=== PATIENT | male | born 1940 | race Caucasian/White ===

== ENCOUNTER 2017-10-07 07:57 | Day surgery (SDC) | payer MEDICARE ==
[2017-10-06 09:46] VITALS: BMI 25.8
--- NOTE | 2017-10-07 11:23 | OP ---
DATE OF PROCEDURE: 10/07/2017 SURGEON: Danyel Xiong M.D. PROCEDURE: EGD with ablation of AVM with argon plasma coagulation and colonoscopy with ablation of A VM with argon plasma coagulation and polypectomy with hot snare polypectomy. PREPROCEDURE DIAGNOSES: 1. Recent drop in hemoglobin from baseline around 14 down to 11 [address] negative [address] ools. 2. The patient recently has been started on Xarelto and then was changed to Eliquis. This was for a trial fibrillation. POST-PROCEDURE DIAGNOSES: 1. No active bleeding sites seen. 2. The esophagus showed scarring from previous reflux, change. The patient has had no dysphagia, so no intervention was performed. There was no evidence of Morel's and the Z-line was normal. The E GD scope passed through this area fine, but when we attempted to do enteroscopy with a colonoscope to look for the small bowel the therapeutic colonoscope would not pass through the esophagus secondary to the stricturing. 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 3. Stomach was normal. 4. Duodenum was notable for small AVMs 2 were arborizing around the area of periampullary diverticul a. These were cauterized with argon plasma coagulation. They were not actively bleeding at time of endoscopy. 5. Colonoscopy notable for jordan diverticulosis. 6. 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 7. 5 mm polyp in the descending colon removed by snare polypectomy, hot. ANESTHESIA: TIVA. RECOMMENDATIONS: 1. He can start back on his anticoagulation in 3 days. 2. He should take iron daily. 3. If patient has further drop in hemoglobin, does not have improvement with iron supplementation I can see him back in the office and we can consider capsule endoscopy of the small bowel. However, at that point I think that something else should to be done with his anticoagulation as he has diffuse AVM disease. It is just going to recur even if it is treated in the small bowel. PROCEDURE IN DETAIL: After the patient was informed of the risks, benefits, possible complications o f endoscopy including perforation, bleeding, reactions to medication and aspiration, informed consent was obtained. The patient was brought to the endoscopy suite where he was sedated in gradual fashio n. Once he was comfortable, a bite block was placed by incisural orifice. The endoscope was advance d to the esophagus, stomach and second and third portion of duodenum and slowly removed. The esophag us was notable for scarring consistent with previous stricture disease. The patient had no dysphagia . This was not dilated. The Z-line appeared normal. The stomach was entered and found to be normal except for a small hiatal hernia. Retroflexed views were normal as well. There were no AVMs or ble eding sites in the stomach or erosions. The duodenal bulb was normal in the second part of the duode num. There was a periampullary diverticula and a few small AVMs, 2 were arborizing type. They were not bleeding. These were cauterized with argon plasma coagulation. There were a few small red spots . These were not treated. The AVMs were cauterized with argon plasma coagulation on stomach setting s. There was no bleeding or complications. The scope was removed. Attempt was made to pass the colonoscope down into the duodenum to the second and third portion to lo ok further in the duodenum for possible further AVMs; however, due to scarring in the esophagus the t herapeutic colonoscope would not pass. The patient was turned in the room and rectal exam performed which was normal. The endoscope was adv anced through the colon to cecum which was seen and well visualized and photo documented. There was diverticulosis throughout the colon. There was 1 AVM in the ascending colon which was nonbleeding an d cauterized with argon plasma coagulation in light of the patient's anemia. The scope was retroflex ed in the rectum and removed.
[2017-10-07] MEDS ORDERED: Lidocaine 1% PF 5 ML VIAL ONE (11:54)
[2017-10-07] MEDS ORDERED: PROPOFOL 200 MG/20 ML VIAL ONE (11:54)
== END 2017-10-07 11:50 | disposition home or self-care (01) ==
LOC: SDC 07:57
PROVIDERS: ATTEND Internal Medicine Gastroenterology
PROC: 0D5K8ZZ Destruction of Ascending Colon, Via Natural or Artificial Opening Endoscopic (ICD-10-PCS; principal; 2017-10-07)
PROC: 0D598ZZ Destruction of Duodenum, Via Natural or Artificial Opening Endoscopic (ICD-10-PCS; 2017-10-07)
DX: K63.5 Polyp of colon (principal); K57.30 Diverticulosis of large intestine without perforation or abscess without bleeding; D64.9 Anemia, unspecified; I48.91 Unspecified atrial fibrillation; K44.9 Diaphragmatic hernia without obstruction or gangrene; Z79.01 Long term (current) use of anticoagulants; Z87.891 Personal history of nicotine dependence; Z79.899 Other long term (current) drug therapy
CPT/HCPCS: 88305

== ENCOUNTER 2017-10-13 08:32 | Inpatient (IN) | payer MEDICARE ==
[2017-10-13 09:21] LABS: #Eosinphils 0.1 thou/uL (0.0-0.7); #Monocytes 0.7 thou/uL (0.11-0.59); #Neutrophils 8.4 thou/uL (1.40-6.50); %Basophils 0.1 % (0.0-1.0); %Eosinophils 1.4 % (0.0-10.0); %Lymphocytes 10.1 % (21.0-51.0); %Monocytes 6.5 % (0.0-10.0); Hemoglobin 11.3 g/dL (14.0-18.0); Mean Corpuscular HGB CONC 33.1 g/dL (32.0-36.0); Mean Corpuscular Volume 93.7 fl (80.0-94.0); Mean Platelet Volume 6.4 fL (7.4-10.4); Platelet Count 253 thou/uL (130-400); RBC Distribution Width 12.1 % (11.5-14.5); Red Blood Cell (RBC) Count 3.64 mill/uL (4.70-6.10); White Blood Cell (WBC) Count 10.2 thou/uL (4.8-10.8)
[2017-10-13 09:33] LABS: INR-International Normal Ratio 1.2; Prothrombin Time 15.1 SEC (12.0-14.7)
[2017-10-13 09:34] LABS: PTT 31.6 SEC (22.9-36.1)
[2017-10-13 09:46] LABS: ALT (SGPT) 10 U/L (8-55); AST (SGOT) 13 U/L (5-34); Albumin 3.4 g/dL (3.4-4.8); Alkaline Phosphatase 85 U/L (40-150); Anion Gap 10 mmol/L (10-20); BUN (Urea Nitrogen) 14 mg/dL (8.4-25.7); Bilirubin, Total 0.6 mg/dL (0.2-1.2); Calc. Creatinine Clearance 0 mL/min (70-130); Calcium 8.7 mg/dL (7.8-10.44); Carbon Dioxide 25 mmol/L (23-31); Chloride 106 mmol/L (98-107); Estimated GFR-MDRD Greater than 90; Globulin 2.6 g/dL (2.4-3.5); Glucose 154 mg/dL (83-110); Potassium 4.1 mmol/L (3.5-5.1); Sodium 137 mmol/L (136-145)
[2017-10-13] MEDS ORDERED: Zolpidem Tartrate 5 MG TAB PO PRN (12:00)
[2017-10-13] MEDS ORDERED: Ondansetron HCl/PF 4 MG/2 ML Vial IVP PRN (12:00)
[2017-10-13] MEDS ORDERED: Dextrose 50% Abboject 50 ML SYRINGE SLOW IVP PRN (12:14)
[2017-10-13] MEDS ORDERED: Dextrose 5% in Water 1,000 ML IV PRN (12:14)
[2017-10-13] MEDS ORDERED: HumaLOG 300 UNITS/3 ML VIAL SC PRN (12:14)
--- NOTE | 2017-10-13 12:42 | HP ---
CHIEF COMPLAINT: GI bleed. HISTORY OF PRESENT ILLNESS: This is a 77-year-old male, who is being admitted to the hospital after presenting to the ER with bright red blood per rectum. The patient takes Eliquis for history of atri al fibrillation, had a nuclear stress test done 2 weeks ago, which was clear. He had a colonoscopy d one last Thursday by his GI doctor. Polyps were removed at that point in time; however, the patient states that for 5 days postoperatively and colonoscopy polypectomy, the patient did not have any ble eding; however, this morning when he had a bowel movement, he had fresh bright red blood in the toile t bowl. The patient states that he did not have any signs or symptoms of weakness, fatigue, states t hat this is the first time that this has happened to him. Of note, his hemoglobin is 11.3 in the ER. No prior records available. The patient currently is asymptomatic, has not had any bowel movements in the hospital. No other associated symptoms. No alleviating or aggravating factors noted. No fa katharina at bedside. ALLERGIES: No known drug allergies. PAST MEDICAL HISTORY: Positive for atrial fibrillation, polyps removal, hyperlipidemia, hypothyroidi sm, diabetes mellitus type 2, and BPH, and hypertension. SOCIAL HISTORY: Denies smoking, does partake alcohol socially. REVIEW OF SYSTEMS: All systems reviewed. Pertinent positives in the HPI, otherwise negative. PHYSICAL EXAMINATION: VITAL SIGNS: Blood pressure is 138/88, irregularly irregular rhythm, temperature 98, and respiratory rate of 16. GENERAL: The patient is lying in bed in no acute distress. HEENT: Pupils equal, round, reactive to light and accommodation. Oral cavity moist and pink. Denta l caries noted. No lymphadenopathy noted. NECK: Supple, mobile, nontender thyroid. LUNGS: Clear to auscultation bilaterally, aerating well. No respiratory distress noted. CARDIOVASCULAR: Irregularly irregular rhythm. No murmurs, rubs, or gallops noted. ABDOMEN: Positive bowel sounds, soft, nontender. No rebound or guarding noted. EXTREMITIES: 2+ peripheral pulses. No edema noted. NEUROLOGIC: Cranial nerves II-XII intact. Alert and oriented x3, moving all extremities. LABORATORY DATA: CBC as mentioned earlier, hemoglobin 11.3, otherwise normal. Coagulation panel, PT , INR, PTT normal. Basic metabolic panel normal. ASSESSMENT: 1. Bright red blood per rectum/GI bleed. 2. Atrial fibrillation on Eliquis. 3. Hyperlipidemia. 4. Diabetes mellitus type 2. 5. Hypertension. PLAN: At this point in time, we will admit the patient to Internal Medicine team on the telemetry fl oor inpatient status. ER has already discussed the case with GI. We will place the patient n.p.o. Consult the patient's outpatient GI doctor. Recent colonoscopy done. We will defer decision on repe at colonoscopy or not to GI once have had a chance to review the current data. Given history of atri al fibrillation, diabetes mellitus and high risk for stroke and normal hemoglobin, we will continue t he apixaban for now. If the patient bleeds, we can always provide more blood, otherwise, risk of str shruthi is high. Blood pressure target systolic 120-140, insulin sliding scale and basal insulin for rajani betes, famotidine for gastrointestinal prophylaxis. The patient already is on apixaban; therefore, D VT prophylaxis will not be needed. CODE STATUS: Discussed with the patient. He wishes to remain a FULL CODE.
--- NOTE | 2017-10-13 13:26 | CON ---
DATE OF CONSULTATION: 10/13/2017 CHIEF COMPLAINT: Blood in the stool. HISTORY OF PRESENT ILLNESS: Mr. Lam is a 77-year-old man, who underwent EGD and colonoscopy on by Dr. Xiong for evaluation of anemia after starting anticoagulation. Two vascular ectasias were cauterized in the duodenum. The colonoscopy revealed a vascular ectasia cauterized in the righ t colon and also 5 mm hyperplastic polyp was removed from the descending colon. The patient was note d to have diverticulosis. Also, he had a stricture in the esophagus and allowed passage of the diagn ostic endoscope, but not the colonoscope. This was a stricture related to prior radiation treatment. Last night, the patient had 2 episodes of diarrhea in the middle of the night that he did not view. Then, this morning about 7:00 a.m., he had a liquidy bright red bloody bowel movement and he came to the emergency room then for further care. Here in the emergency room, he has been hemodynamically st able. His hemoglobin is found to be stable at 11. He did pass a dark red bloody stool with some suellen t once in the emergency room around noon. He states that this was much darker than the prior bleedin g episode. He has had no lightheadedness or dizziness. No nausea, vomiting, abdominal pain, prior d iarrhea, constipation, or prior visible blood in the stool. He has had lost 20 pounds gradually over the last 3 years with diet changes and exercise. PAST MEDICAL HISTORY: Lung cancer treated with radiation, diabetes mellitus, thyroid disease, hypert ension, hyperlipidemia, coronary artery disease treated with angioplasty over 20 years ago. He has n ot had a stent or bypass surgery. He has had hyperlipidemia. PAST SURGICAL HISTORY: Foot surgery, pacemaker placement, angioplasty, EGD and colonoscopy with caut michelle of arteriovenous malformations and polypectomy. FAMILY HISTORY: Negative for GI malignancy. SOCIAL HISTORY: Drinks 2 or 3 glasses of wine per week. No drugs or alcohol. ALLERGIES: No known drug allergies. MEDICATIONS: Atorvastatin, levothyroxine, metformin, vitamin D, tamsulosin, Metamucil 2 teaspoons da lesli, Eliquis 5 mg twice daily. His last dose was last night around 6:30 p.m., valsartan, melatonin, vitamin B12. REVIEW OF SYSTEMS: Negative x10 systems reviewed except as stated in history of present illness. PHYSICAL EXAMINATION: VITAL SIGNS: Blood pressure 119/38, pulse 85, temperature 97.8. GENERAL: He is in no acute distress, alert and oriented x3. HEENT: Eyes have no scleral icterus. Oropharynx is clear, without lesions. NECK: No cervical or supraclavicular lymphadenopathy. LUNGS: Clear to auscultation bilaterally. HEART: Regular rate and rhythm without murmur. ABDOMEN: Soft, nontender, nondistended. Bowel sounds are present. EXTREMITIES: No lower extremity edema. LABORATORY AND X-RAY FINDINGS: White blood cell count 10.2, hemoglobin 11.3, platelets 253. INR 1.2 , creatinine 0.77, bilirubin 0.6, AST 13, ALT 10, alkaline phosphatase 85, albumin 3.4. IMPRESSION: 1. Gastrointestinal bleed. Unclear if this is an upper GI bleed secondary to the cautery sites from the duodenal arteriovenous malformations versus lower GI bleed from the right-sided colonic arteriov enous malformation or the polypectomy site. I would favor this being a colonic bleed given the brigh t red bloody stool this morning. The blood has become much darker with a second stool today, which i ndicates a bleeding is likely slowing down. I would suspect that the bleeding is from the right-side d arteriovenous malformation. The patient's last dose of Eliquis was last night at 6:30 p.m. It santiago ears that the bleeding slowing down and his hemoglobin was stable. He really does not want to take a bowel prep currently. I think it would be reasonable to see the progress of the bleeding status ove r the next several hours as his Eliquis wear off. If the bleeding stops off Eliquis, then repeat end oscopy might not be necessary. He likely just stay off the Eliquis for an extra week and then restar mariaa after that. 2. Atrial fibrillation, paroxysmal, on chronic anticoagulation. 3. History of chronic obstructive pulmonary disease and diabetes mellitus. RECOMMENDATIONS: 1. IV fluids and monitor the hemoglobin. 2. If he has further significant overt bleeding, then we will prep for EGD and colonoscopy. 3. Anticoagulation is held for now.
[2017-10-13] MEDS: Sodium Chloride 0.9% 1,000 ML IV SCH ×2 (13:32→22:10)
[2017-10-13 16:13] LABS: Hemoglobin 9.9 g/dL (14.0-18.0)
[2017-10-13 17:42] VITALS: BMI 25.7
[2017-10-13] MEDS ORDERED: Non-Formulary Item 1 EACH (Omeprazole [Omeprazole] 40 MG) PO SCH (21:00)
[2017-10-13] MEDS ORDERED: Apixaban 5 MG TAB PO SCH (21:00)
[2017-10-13] MEDS: Valsartan 80 MG TAB PO SCH (21:40)
[2017-10-13] MEDS: Atorvastatin Calcium 40 MG TAB PO SCH (21:42)
[2017-10-13] MEDS: Insulin Glargine 5 UNITS in Pre-Filled Syringe SC SCH (21:42)
[2017-10-13] MEDS: Famotidine 20 MG TAB PO SCH (21:42)
[2017-10-13] MEDS: Tamsulosin HCl 0.4 MG CAP PO SCH (21:43)
[2017-10-14 05:39] LABS: #Eosinphils 0.2 thou/uL (0.0-0.7); #Lymphocytes 1.1 thou/uL (1.20-3.40); #Monocytes 0.7 thou/uL (0.11-0.59); #Neutrophils 6.6 thou/uL (1.40-6.50); %Basophils 0.3 % (0.0-1.0); %Lymphocytes 12.8 % (21.0-51.0); %Monocytes 7.6 % (0.0-10.0); %Neutrophils 77.4 % (42.0-75.0); Hemoglobin 9.3 g/dL (14.0-18.0); Mean Corpuscular HGB CONC 32.6 g/dL (32.0-36.0); Mean Corpuscular Volume 95.3 fl (80.0-94.0); Mean Platelet Volume 6.7 fL (7.4-10.4); Platelet Count 234 thou/uL (130-400); RBC Distribution Width 12.1 % (11.5-14.5); Red Blood Cell (RBC) Count 2.99 mill/uL (4.70-6.10); White Blood Cell (WBC) Count 8.6 thou/uL (4.8-10.8)
[2017-10-14 05:49] LABS: Anion Gap 8 mmol/L (10-20); Calc. Creatinine Clearance 86 mL/min (70-130); Calcium 8.3 mg/dL (7.8-10.44); Carbon Dioxide 25 mmol/L (23-31); Chloride 109 mmol/L (98-107); Estimated GFR-MDRD Greater than 90; Glucose 110 mg/dL (83-110); Potassium 4.1 mmol/L (3.5-5.1); Sodium 138 mmol/L (136-145)
[2017-10-14 06:46] LABS: BUN (Urea Nitrogen) 13 mg/dL (8.4-25.7)
[2017-10-14] MEDS: Valsartan 80 MG TAB PO SCH ×2 (07:51→21:15)
[2017-10-14] MEDS: Levothyroxine Sodium 100 MCG TAB PO SCH (07:51)
[2017-10-14] MEDS: Famotidine 20 MG TAB PO SCH ×2 (07:52→20:14)
--- NOTE | 2017-10-14 10:00 | CON ---
DATE OF CONSULTATION: 10/14/2017 CONSULTING PHYSICIAN: Angie abdalla. REASON FOR CONSULTATION: Evaluation of COPD. HISTORY OF PRESENT ILLNESS: This patient is a 77-year-old male who I have seen in the office on several occasions in the past, but not since 2012. He was actually scheduled to see me yesterday in the office, but missed the appointment because he had to be admitted into the hospital. He had some gastrointestinal bleeding last week which required upper and lower endoscopy. He was hospitalized with recurrent bleeding yesterday. I think that has stabilized, but he is currently under GI evaluation for that. PAST MEDICAL HISTORY: 1. Chronic obstructive pulmonary disease - he has had PFTs performed in the past which showed an FEV1, 2.07 liters which is 73% predicted and FVC of 3.2 liters which is 88% predicted. 2. Cardiac arrhythmias. 3. Probable congestive heart failure. 4. Cancer of the head and neck. 5. Lung cancer. PAST SURGICAL HISTORY: Pacemaker placement. SOCIAL HISTORY: The patient quit smoking about 25 years ago. MEDICATIONS: Reviewed, see chart. REVIEW OF SYSTEMS: He has dyspnea with exertion, occasionally wheezes. PHYSICAL EXAMINATION: VITAL SIGNS: Heart rate 60, O2 sat 97% on room air, blood pressure 120/80. HEENT: Unremarkable. NECK: Without adenopathy or JVD. LUNGS: Clear without wheezing or rhonchi. No dullness to percussion. CARDIAC: S1, S2 regular. ABDOMEN: Soft, nontender. EXTREMITIES: No clubbing, cyanosis, or edema. LABORATORY DATA: Reviewed, see chart. ASSESSMENT: 1. Chronic obstructive pulmonary disease. 2. Gastrointestinal bleeding. 3. Atrial fibrillation. PLAN: I will go ahead and start him on Anora Ellipta 1 puff daily. This can be done as an outpatient. I have asked him to see me back in followup in 2-3 weeks. 70 minutes time was spent performing this consultation. Of that time, >50% was spent with the patient and/or on the patient's hospital unit [facility]
--- NOTE | 2017-10-14 11:21 | PDOC.PN ---
- Subjective Encounter Start Date: 10/14/17 Encounter Start Time: 10:15 PAtient is seen today, alert and oriented. he said he had black stool today along with bright red bloood, he is on clear liquids, no abdominal pain, no Sob. - Objective MAR Reviewed: Yes Vital Signs & Weight: Vital Signs (12 hours) Temp Pulse Resp BP Pulse Ox 10/14/17 07:20 97.9 F 81 16 193/82 H 96 10/14/17 04:00 97.6 F 72 18 179/72 H 93 L 10/14/17 00:00 98.4 F 74 18 145/63 H 95 Result Diagrams: 10/14/17 05:17 10/14/17 05:17 Radiology Reviewed by me: Yes Phys Exam - Physical Examination HEENT: PERRLA, moist MMs Neck: no nodes, no JVD Respiratory: no wheezing, no rales Cardiovascular: RRR, no significant murmur Gastrointestinal: soft, non-tender Musculoskeletal: no edema, pulses present Neurological: non-focal, normal sensation Psychiatric: normal affect, A&O x 3 Dx/Plan (1) Anemia associated with acute blood loss Code(s): D62 - ACUTE POSTHEMORRHAGIC ANEMIA Status: Acute Comment: Will luis harden, Will reepat Hb today afternoon at 1500,. oif persistantly dropping with black stool and stool per rectum, will discus with Gi to keep pt NPO to avoid GI irritation. Will continue pt on PPI. (2) Anticoagulation management encounter Code(s): Z51.81 - ENCOUNTER FOR THERAPEUTIC DRUG LEVEL MONITORING; Z79.01 - WRAPPER CASER (CURRENT) USE OF ANTICOAGULANTS Status: Acute Comment: held Eleiquis. (3) Atrial fibrillation Code(s): I48.91 - UNSPECIFIED ATRIAL FIBRILLATION Status: Acute Comment: rate controlled, no anticoagulation, high risk for Stroke, pt aware of it. (4) Melena Code(s): K92.1 - MELENA Status: Acute Comment: will change to protonix PPI IV BID. Will do PRBC if Hbdrops <8 (5) COPD (chronic obstructive pulmonary disease) Status: Acute Comment: no exacerbation (6) HTN (hypertension) Code(s): I10 - ESSENTIAL (PRIMARY) HYPERTENSION Status: Acute (7) DM type 2 (diabetes mellitus, type 2) Status: Acute Comment: Stbale, continue with SSI. - Plan cont current plan of care, plan discussed w/ family, PT/OT, social services aide, DVT proph w/SCDs PLAN TO CLOSLEY MONITOR the Bleeding. Will keep pt in hospital today. Plan on discussing with Cardiology regarding holding off of Elliqis due to GI bleeding. Review of Systems - Review of Systems Eyes: negative: Pain, Vision Change, Conjunctivae Inflammation, Eyelid Inflammation, Redness, Other ENT: negative: Ear Pain, Ear Discharge, Nose Pain, Nose Discharge, Nose Congestion, Mouth Pain, Mouth Swelling, Throat Pain, Throat Swelling, Other Respiratory: negative: Cough, Dry, Shortness of Breath, Hemoptysis, SOB with Excertion, Pleuritic Pain, Sputum, Wheezing Cardiovascular: negative: chest pain, palpitations, orthopnea, paroxysmal nocturnal dyspnea, edema, light headedness, other Gastrointestinal: negative: Nausea, Vomiting, Abdominal Pain, Diarrhea, Constipation, Melena, Hematochezia, Other Musculoskeletal: negative: Neck Pain, Shoulder Pain, Arm Pain, Back Pain, Hand Pain, Leg Pain, Foot Pain, Other Skin: negative: Rash, Lesions, Jonah, Bruising, Other - Medications/Allergies Allergies/Adverse Reactions: Allergies Allergy/AdvReac Type Severity Reaction Status Date / Time No Known Allergies Allergy Verified 10/13/17 15:19 Medications: Current Medications Albuterol/Ipratropium (Duoneb) 3 ml NEB [id number] PRN PRN Reason: Dyspnea/Wheezing/SOB Atorvastatin Calcium (Lipitor) 40 mg PO QPM [facility] Last Admin: 10/13/17 21:42 Dose: Not Given Dextrose/Water (Dextrose 50%) 25 gm SLOW IVP PRN PRN PRN Reason: Hypoglycemia Famotidine (Pepcid) 20 mg PO BID [facility] Last Admin: 10/14/17 07:52 Dose: 20 mg Glucagon (Glucagon) 1 mg IM PRN PRN PRN Reason: Hypoglycemia Sodium Chloride (Normal Saline 0.9%) 1,000 mls @ 70 mls/hr IV .[id number] [facility] Last Admin: 10/13/17 22:10 Dose: 1,000 mls Dextrose/Water (D5w) 1,000 mls @ 0 mls/hr IV .Q0M PRN; As Directed PRN Reason: Hypoglycemia Insulin Glargine 5 units/ (Miscellaneous Medication) 0.05 mls @ 0 mls/hr SC HS [facility] Last Admin: 10/13/17 21:42 Dose: Not Given Insulin Human Lispro (Humalog) 0 units SC .MILD SLIDING SCALE PRN PRN Reason: Mild Correctional Scale Lactulose (Lactulose) 20 gm PO DAILYPRN PRN PRN Reason: Constipation Levothyroxine Sodium (Synthroid) 100 mcg PO QAM [facility] Last Admin: 10/14/17 07:51 Dose: 100 mcg Ondansetron HCl (Zofran) 4 mg IVP Q6H PRN PRN Reason: Nausea/Vomiting Pantoprazole Sodium (Protonix) 40 mg PO QPM [facility] Last Admin: 10/13/17 21:43 Dose: Not Given Sodium Chloride (Flush - Normal Saline) 10 ml IVF Q12HR [facility] Last Admin: 10/14/17 07:52 Dose: Not Given Sodium Chloride (Flush - Normal Saline) 10 ml IVF PRN PRN PRN Reason: Saline Flush Tamsulosin HCl (Flomax) 0.4 mg PO QPM [facility] Last Admin: 10/13/17 21:43 Dose: Not Given Valsartan (Diovan) 40 mg PO BID [facility] Last Admin: 10/14/17 07:51 Dose: 40 mg Zolpidem Tartrate (Ambien) 5 mg PO HSPRN PRN PRN Reason: Insomnia
[2017-10-14] MEDS: Sodium Chloride 0.9% 1,000 ML IV SCH (12:47)
[2017-10-14 12:52] LABS: Hemoglobin 9.6 g/dL (14.0-18.0)
[2017-10-14] MEDS: hydrALAZINE 20 MG/ML VIAL SLOW IVP PRN (14:20)
[2017-10-14 15:16] LABS: #Basophils 0.1 thou/uL (0.0-0.2); #Eosinphils 0.1 thou/uL (0.0-0.7); #Lymphocytes 1.5 thou/uL (1.20-3.40); #Monocytes 0.6 thou/uL (0.11-0.59); #Neutrophils 6.5 thou/uL (1.40-6.50); %Basophils 0.6 % (0.0-1.0); %Eosinophils 1.5 % (0.0-10.0); %Lymphocytes 17.1 % (21.0-51.0); %Monocytes 6.6 % (0.0-10.0); %Neutrophils 74.2 % (42.0-75.0); Hemoglobin 10.1 g/dL (14.0-18.0); Mean Corpuscular HGB CONC 33.3 g/dL (32.0-36.0); Mean Corpuscular Hemoglobin 31.2 pg (27.0-31.0); Mean Corpuscular Volume 93.8 fl (80.0-94.0); Mean Platelet Volume 6.3 fL (7.4-10.4); Platelet Count 234 thou/uL (130-400); RBC Distribution Width 12.2 % (11.5-14.5); Red Blood Cell (RBC) Count 3.25 mill/uL (4.70-6.10); White Blood Cell (WBC) Count 8.8 thou/uL (4.8-10.8)
--- NOTE | 2017-10-14 17:20 | PRG ---
DATE OF SERVICE: 10/14/2017 GI FOLLOWUP SUBJECTIVE: Mr. Lam had one bowel movement this morning at 8:00 that had old blood and then he jus t had a second bowel movement here at 2:00 that was about 5 mL of old blood. He has been tolerating liquid diet. His blood pressure has been running high. Today, he has been given some extra blood pr essure medicines and his IV fluids have been held. He is without chest pain, shortness of breath or abdominal pain. He has no appetite. OBJECTIVE: VITAL SIGNS: Pulse 75, respirations 18, and blood pressure 181/74. LUNGS: Clear. ABDOMEN: Soft, nontender. Bowel sounds scant. LABORATORY DATA: Hemoglobin 9.6 at 12:41 today. ASSESSMENT: Lower gastrointestinal bleeding after colonoscopy and ablation of AVM, polypectomy. He was on Eliquis that has been on hold now, his last dose was the last night, the night before. PLAN: Advance diet to soft diet, Hep-Lock IV, blood pressure control per primary care. If the patie nt drops hemoglobin with subsequent recurrent large amounts of bleeding, we will proceed with endosco py. This seems to be stopping on its own. If it does, hopefully can go home tomorrow or the next da y and stay off his Eliquis for about 5 days.
[2017-10-14] MEDS: Atorvastatin Calcium 40 MG TAB PO SCH (20:14)
[2017-10-14] MEDS: Tamsulosin HCl 0.4 MG CAP PO SCH (20:14)
[2017-10-14] MEDS: Insulin Glargine 5 UNITS in Pre-Filled Syringe SC SCH (20:15)
[2017-10-14] MEDS: Pantoprazole 40 MG VIAL IVP SCH (20:15)
[2017-10-15 05:21] LABS: #Eosinphils 0.2 thou/uL (0.0-0.7); #Lymphocytes 1.1 thou/uL (1.20-3.40); #Monocytes 0.7 thou/uL (0.11-0.59); #Neutrophils 6.2 thou/uL (1.40-6.50); %Basophils 0.5 % (0.0-1.0); %Eosinophils 2.4 % (0.0-10.0); %Lymphocytes 13.6 % (21.0-51.0); %Monocytes 8.2 % (0.0-10.0); %Neutrophils 75.3 % (42.0-75.0); Hemoglobin 9.2 g/dL (14.0-18.0); Mean Corpuscular HGB CONC 33.1 g/dL (32.0-36.0); Mean Corpuscular Hemoglobin 31.1 pg (27.0-31.0); Mean Corpuscular Volume 93.9 fl (80.0-94.0); Mean Platelet Volume 6.8 fL (7.4-10.4); Platelet Count 231 thou/uL (130-400); RBC Distribution Width 12.2 % (11.5-14.5); Red Blood Cell (RBC) Count 2.95 mill/uL (4.70-6.10); White Blood Cell (WBC) Count 8.2 thou/uL (4.8-10.8)
[2017-10-15 05:33] LABS: Anion Gap 12 mmol/L (10-20); BUN (Urea Nitrogen) 13 mg/dL (8.4-25.7); Calc. Creatinine Clearance 89 mL/min (70-130); Calcium 8.5 mg/dL (7.8-10.44); Carbon Dioxide 23 mmol/L (23-31); Chloride 108 mmol/L (98-107); Estimated GFR-MDRD Greater than 90; Glucose 107 mg/dL (83-110); Potassium 4.2 mmol/L (3.5-5.1); Sodium 139 mmol/L (136-145)
[2017-10-15] MEDS: Pantoprazole 40 MG VIAL IVP SCH ×3 (08:36→23:42)
[2017-10-15] MEDS: Levothyroxine Sodium 100 MCG TAB PO SCH (08:36)
--- NOTE | 2017-10-15 09:25 | PRG ---
DATE OF SERVICE: 10/15/2017 SUBJECTIVE: Patient is doing reasonably well, but is still having some melena. PHYSICAL EXAMINATION: VITAL SIGNS: On exam, temperature is 97.7, pulse 85, respirations 20, O2 sat 97%, pulse 129/56. HEENT: Unremarkable. NECK: No JVD. CHEST: Clear. CARDIAC: S1 and S2 regular. ABDOMEN: Soft. EXTREMITIES: No edema. LABORATORY DATA: Sodium 139, potassium 4.2, chloride 108, CO2 of 22, BUN 13, creatinine 0.7, glucose 107. White cell count 8.2, hematocrit 27.7, platelet count 231. ASSESSMENT: 1. Intestinal bleeding. 2. Chronic obstructive pulmonary disease. PLAN: He has a prescription for Anoro Ellipta inhaler. 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 He is to see me in the office in 2 to 3 weeks. No further pulmonary re commendations at this time.
[2017-10-15] MEDS: Valsartan 80 MG TAB PO SCH ×2 (09:48→21:10)
[2017-10-15] MEDS: Famotidine 20 MG TAB PO SCH ×3 (09:48→23:41)
[2017-10-15] MEDS ORDERED: GoLYTELY 4,000 ml Bottle PO SCH (13:30)
[2017-10-15] MEDS ORDERED: Lidocaine 1% PF 5 ML VIAL ONE (14:34)
[2017-10-15] MEDS ORDERED: PROPOFOL 200 MG/20 ML VIAL ONE (14:34)
[2017-10-15 15:12] LABS: Hemoglobin 10.2 g/dL (14.0-18.0)
--- NOTE | 2017-10-15 17:15 | PRG ---
DATE OF SERVICE: 10/15/2017 SUBJECTIVE: Mr. Lam continues to have small melenic stool, but it is not really changing much. He had 2 yesterday and 2 today. OBJECTIVE: VITAL SIGNS: Temperature 97, pulse 85, blood pressure 129/59. ABDOMEN: Soft, nontender. Bowel sounds are positive. EXTREMITIES: No clubbing, cyanosis or edema. LABORATORY STUDIES: White count 8.3, hemoglobin 9.2, platelet count 231. 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 He is status post colonoscopy a nd polypectomy. On 10/07/2017, he has been off Eliquis now for over 72 hours and seems to have sligh t oozing. RECOMMENDATIONS: Repeat colonoscopy with hopefully cautery of bleeding site.
[2017-10-15] MEDS ORDERED: Ondansetron HCl/PF 4 MG/2 ML Vial IVP PRN (18:36)
[2017-10-15] MEDS: Atorvastatin Calcium 40 MG TAB PO SCH ×2 (21:08→23:42)
[2017-10-15] MEDS: Insulin Glargine 5 UNITS in Pre-Filled Syringe SC SCH (21:09)
[2017-10-15] MEDS: Tamsulosin HCl 0.4 MG CAP PO SCH (21:10)
[2017-10-16] MEDS: Valsartan 80 MG TAB PO SCH ×2 (00:01→09:55)
[2017-10-16] MEDS: hydrALAZINE 20 MG/ML VIAL SLOW IVP PRN (01:29)
--- NOTE | 2017-10-16 02:25 | OP ---
DATE OF PROCEDURE: 10/15/2017 INDICATION FOR PROCEDURE: Melena, hematochezia. PROCEDURES: Esophagogastroduodenoscopy (diagnostic), colonoscopy with control of hemorrhage. DESCRIPTION OF PROCEDURE: After the risks and benefits of the procedures were explained to the patie nt including risks of bleeding, infection, perforation, reaction to anesthesia and/or pain, informed consent was obtained. The patient was then taken to the endoscopy suite where deep sedation was admi nistered via propofol and anesthesia support. Once adequate anesthesia was achieved, a standard ji roscope was introduced into the mouth with intubation of the esophagus, stomach, and proximal small i ntestine with the findings listed below. Once completion of this portion of the examination, all equ ipment was removed with the bed then rotated approximately 180 degrees and initiation of the colonosc opy portion of the procedure. After a digital rectal examination, the standard colonoscope was then introduced into the rectum and advanced to the cecum with the findings listed below. The prep was fa ir to good with adequate views of the colonic mucosa seen. The patient tolerated the procedure well with no immediate perioperative complications. ESOPHAGOGASTRODUODENOSCOPY FINDINGS: Esophagus: Normal appearing mucosa was seen in the proximal, mid and distal esophagus. There was no evidence of erosions, ulcerations, mass, lesions, or active/recent bleeding. The diaphragmatic pinc h was well seen at approximately 44-cm past the incisors while the GE junction was seen at 42 cm, ind icating a 2-cm hiatal hernia. Stomach: Normal appearing mucosa was seen in the gastric cardia, fundus, body, antrum, and incisura. There was no evidence of erosions, ulcerations, mass, lesions, or active/recent bleeding. Duodenum: Normal appearing mucosa was seen in both the duodenal bulb and second portion of the duode num. There was no evidence of erosions, ulcerations, mass, lesions, or active/recent bleeding. Impr ession: 1. A 2-cm hiatal hernia. 2. Otherwise, normal upper endoscopy. COLONOSCOPY FINDINGS: Digital rectal examination, normal findings on external exam. COLON FINDINGS: A 3-4 mm ulceration was seen in the cecum with a red spot located along the inferior aspect of the ulceration. The ulceration was otherwise clean based with no evidence of active/recen t bleeding nearby given the red spot on the inferior aspect of the ulceration as higher risk stigmata of bleeding. This was intervened upon with bipolar cautery with good hemostasis achieved. Normal a ppearing mucosa was then seen at the ileocecal valve and appendiceal orifice. Normal appearing mucos a was also seen in the ascending and transverse colons. A 5-6 mm ulceration was seen in the descendi ng colon consistent with prior polypectomy site. There was a small red spot along the lateral aspect of the ulceration as well as a large clot nearby concerning for a possible site of recent GI bleedin g. This ulceration was then act intervened upon with bipolar cautery with good hemostasis achieved. Normal appearing mucosa was seen in the remainder of the descending colon. Multiple diverticula (sm all and large) were seen in the distal descending and sigmoid colon. Normal appearing mucosa was see n in the rectum; however, small internal hemorrhoids were seen on rectal retroflexion. IMPRESSION: 1. A 3-4 mm cecal ulceration with red spot concerning for recent GI bleeding with good hemostasis ac hieved with bipolar cautery. 2. A 5-6 mm ulceration seen in the descending colon consistent with prior polypectomy site, also wit h high risk stigmata of bleeding intervened upon with bipolar cautery with good hemostasis achieved. 3. [id number] left-sided diverticulosis. 4. Internal hemorrhoids. RECOMMENDATIONS: 1. We will continue to trend H and H and transfuse as necessary to maintain an H and H of 7 and 21. 2. Continue to monitor clinically for signs of active GI bleeding. 3. If the patient continues to have melenic stools, would consider a tagged red blood cell scan for localization of the bleeding. 4. We would continue patient on PPI b.i.d. for now. 5. We would continue to hold any anticoagulation given any interventions taken today for the next 48 hours, then resume anticoagulation.
[2017-10-16 04:01] LABS: #Eosinphils 0.1 thou/uL (0.0-0.7); #Lymphocytes 0.8 thou/uL (1.20-3.40); #Monocytes 0.8 thou/uL (0.11-0.59); %Basophils 0.3 % (0.0-1.0); %Eosinophils 1.1 % (0.0-10.0); %Lymphocytes 8.4 % (21.0-51.0); %Monocytes 8.3 % (0.0-10.0); %Neutrophils 81.9 % (42.0-75.0); Hemoglobin 9.4 g/dL (14.0-18.0); Mean Corpuscular HGB CONC 33.3 g/dL (32.0-36.0); Mean Corpuscular Hemoglobin 31.1 pg (27.0-31.0); Mean Corpuscular Volume 93.2 fl (80.0-94.0); Mean Platelet Volume 6.1 fL (7.4-10.4); Platelet Count 210 thou/uL (130-400); RBC Distribution Width 12.3 % (11.5-14.5); Red Blood Cell (RBC) Count 3.02 mill/uL (4.70-6.10); White Blood Cell (WBC) Count 9.8 thou/uL (4.8-10.8)
[2017-10-16 04:15] LABS: Anion Gap 9 mmol/L (10-20); BUN (Urea Nitrogen) 12 mg/dL (8.4-25.7); Calc. Creatinine Clearance 92 mL/min (70-130); Calcium 8.7 mg/dL (7.8-10.44); Carbon Dioxide 24 mmol/L (23-31); Chloride 108 mmol/L (98-107); Estimated GFR-MDRD Greater than 90; Glucose 114 mg/dL (83-110); Potassium 3.8 mmol/L (3.5-5.1); Sodium 137 mmol/L (136-145)
[2017-10-16] MEDS: Pantoprazole 40 MG VIAL IVP SCH (09:53)
[2017-10-16] MEDS: Famotidine 20 MG TAB PO SCH (09:54)
[2017-10-16] MEDS: Levothyroxine Sodium 100 MCG TAB PO SCH (09:54)
--- NOTE | 2017-10-16 11:48 | EKG ---
Test Reason : Blood Pressure : / mmHG Vent. Rate : 072 BPM Atrial Rate : 072 BPM P-R Int : 000 ms QRS Dur : 086 ms QT Int : 390 ms P-R-T Axes : 030 -01 049 degrees QTc Int : 427 ms Electronic atrial pacemaker Confirmed by CHELA POWELL ([id number]), science editor KATIUSKA ALMANZA ([id number]) on 10/16/2017 11:47:16 AM Referred By: Confirmed By:CHELA POWELL
[2017-10-16 14:05] VITALS: BP 128/63; TEMP 98.2
--- NOTE | 2017-10-16 14:23 | DIS ---
ADMITTING DIAGNOSIS: Post-polypectomy bleeding. DISCHARGE DIAGNOSES: Post-polypectomy bleeding, resolved. PROCEDURES: Colonoscopy with cautery of previous site ablation of AVM above to the cecal ulceration were AVMs was noted before and also to descending colon previous polypectomy site where there was a s mall clot. HOSPITAL COURSE: The patient was admitted to the hospital after presenting with bleeding after a col onoscopy which was performed secondary to gastrointestinal blood loss related Eliquis on 10/07/2017. His hemoglobin was 11.3 on admission and dropped to 9.2. He continued slightly oozing, never requir ed transfusions. His hemoglobin the day of discharge was 10.2. DISCHARGE DISPOSITION: 1. Regular diet. 2. Follow up with PCP in [place] in 1 week. Check blood count. 3. Resume home medications on discharge except for Eliquis. He will resume Eliquis on 10/20. 4. Recommend he take iron sulfate 325 or equivalent once daily with food.
--- NOTE | 2017-10-17 12:06 | PDOC.PN ---
- Subjective Encounter Start Date: 10/15/17 Encounter Start Time: 09:00 Patient is seen today, resting comfortable on chair,. a bedside, No other concern noted. had some BM with Blood today. - Objective MAR Reviewed: Yes Result Diagrams: 10/16/17 03:52 10/16/17 03:52 Radiology Reviewed by me: Yes Phys Exam - Physical Examination HEENT: PERRLA, moist MMs Neck: no nodes, no JVD Respiratory: no wheezing, no rales Cardiovascular: RRR, no significant murmur Gastrointestinal: soft, non-tender Dx/Plan (1) Anemia associated with acute blood loss Code(s): D62 - ACUTE POSTHEMORRHAGIC ANEMIA Status: Acute Comment: Will ruba lai at 10.1,Will reepat Hb today afternoon at 1500,. Will continue pt on PPI. (2) Anticoagulation management encounter Code(s): Z51.81 - ENCOUNTER FOR THERAPEUTIC DRUG LEVEL MONITORING; Z79.01 - [facility] (CURRENT) USE OF ANTICOAGULANTS Status: Acute Comment: held Eleiquis.had a long discussion about the Holding of Eliquis and advised to talk to his EP if he needs to be on Eliquis due to this new GI bleeding. (3) Atrial fibrillation Code(s): I48.91 - UNSPECIFIED ATRIAL FIBRILLATION Status: Acute Comment: rate controlled, no anticoagulation, high risk for Stroke, pt aware of it. (4) Melena Code(s): K92.1 - MELENA Status: Acute Comment: will change to protonix PPI IV BID. Will do PRBC if Hbdrops <8 (5) COPD (chronic obstructive pulmonary disease) Status: Acute Comment: no exacerbation (6) HTN (hypertension) Code(s): I10 - ESSENTIAL (PRIMARY) HYPERTENSION Status: Acute (7) DM type 2 (diabetes mellitus, type 2) Status: Acute Comment: Stbale, continue with SSI. - Plan cont current plan of care, plan discussed w/ family, PT/OT, oncology social worker, incentive spirometry, out of bed/ambulate, DVT proph w/SCDs * . Review of Systems - Review of Systems Respiratory: negative: Cough, Dry, Shortness of Breath, Hemoptysis, SOB with Excertion, Pleuritic Pain, Sputum, Wheezing Cardiovascular: negative: chest pain, palpitations, orthopnea, paroxysmal nocturnal dyspnea, edema, light headedness, other Gastrointestinal: Hematochezia Genitourinary: negative: Dysuria, Frequency, Incontinence, Hematuria, Retention , Other Musculoskeletal: negative: Neck Pain, Shoulder Pain, Arm Pain, Back Pain, Hand Pain, Leg Pain, Foot Pain, Other - Medications/Allergies Allergies/Adverse Reactions: Allergies Allergy/AdvReac Type Severity Reaction Status Date / Time No Known Allergies Allergy Verified 10/13/17 15:19
--- NOTE | 2017-10-17 12:10 | PDOC.PN ---
- Subjective Encounter Start Date: 10/16/17 Encounter Start Time: 11:00 Patient iss een today, alert an doriented, GI had EGD done yesterday and cauterized the bleeding site, No more bleeding noticed, Explaiend pt he could be dischagred today, and advised to hold Eliquis for 5 more days per GI. - Objective MAR Reviewed: Yes Result Diagrams: 10/16/17 03:52 10/16/17 03:52 Radiology Reviewed by me: Yes Phys Exam - Physical Examination HEENT: PERRLA Neck: no nodes, no JVD Respiratory: no wheezing, no rales Cardiovascular: RRR, no significant murmur Gastrointestinal: soft, non-tender Musculoskeletal: no edema, pulses present Dx/Plan (1) Anemia associated with acute blood loss Code(s): D62 - ACUTE POSTHEMORRHAGIC ANEMIA Status: Acute Comment: Will closanna harden stshrutie at 10.1,Will reepat Hb today afternoon at 1500,. Will continue pt on PPI. pt will go home today per GI,. EGD last night showed bleeding site and is cauterized. (2) Anticoagulation management encounter Code(s): Z51.81 - ENCOUNTER FOR THERAPEUTIC DRUG LEVEL MONITORING; Z79.01 - [employer] (CURRENT) USE OF ANTICOAGULANTS Status: Acute Comment: held Eleiquis.had a long discussion about the Holding of Eliquis and advised to talk to his EP if he needs to be on Eliquis due to this new GI bleeding. (3) Atrial fibrillation Code(s): I48.91 - UNSPECIFIED ATRIAL FIBRILLATION Status: Acute Comment: rate controlled, no anticoagulation, high risk for Stroke, pt aware of it. (4) Melena Code(s): K92.1 - MELENA Status: Acute Comment: will change to protonix PPI IV BID. Will do PRBC if Hbdrops <8 (5) COPD (chronic obstructive pulmonary disease) Status: Acute Comment: no exacerbation (6) HTN (hypertension) Code(s): I10 - ESSENTIAL (PRIMARY) HYPERTENSION Status: Acute (7) DM type 2 (diabetes mellitus, type 2) Status: Acute Comment: Stbale, continue with SSI. - Plan cont current plan of care, plan discussed w/ family, PT/OT, social work associate, incentive spirometry, out of bed/ambulate, DVT proph w/SCDs * . Review of Systems - Review of Systems Eyes: negative: Pain, Vision Change, Conjunctivae Inflammation, Eyelid Inflammation, Redness, Other ENT: negative: Ear Pain, Ear Discharge, Nose Pain, Nose Discharge, Nose Congestion, Mouth Pain, Mouth Swelling, Throat Pain, Throat Swelling, Other Respiratory: negative: Cough, Dry, Shortness of Breath, Hemoptysis, SOB with Excertion, Pleuritic Pain, Sputum, Wheezing Cardiovascular: negative: chest pain, palpitations, orthopnea, paroxysmal nocturnal dyspnea, edema, light headedness, other Gastrointestinal: negative: Nausea, Vomiting, Abdominal Pain, Diarrhea, Constipation, Melena, Hematochezia, Other - Medications/Allergies Allergies/Adverse Reactions: Allergies Allergy/AdvReac Type Severity Reaction Status Date / Time No Known Allergies Allergy Verified 10/13/17 15:19
== END 2017-10-16 15:08 | disposition home or self-care (01) | DRG 378 ==
LOC: ERS 08:32 → 2NO 13:27 → T4-B 10-14 15:25
PROVIDERS: ADMIT Internal Medicine; ATTEND Internal Medicine
PROC: 0DJ08ZZ Inspection of Upper Intestinal Tract, Via Natural or Artificial Opening Endoscopic (ICD-10-PCS; principal; 2017-10-15)
PROC: 0W3P8ZZ Control Bleeding in Gastrointestinal Tract, Via Natural or Artificial Opening Endoscopic (ICD-10-PCS; 2017-10-15)
DX: K55.21 Angiodysplasia of colon with hemorrhage (principal); K63.3 Ulcer of intestine; D62 Acute posthemorrhagic anemia; E78.5 Hyperlipidemia, unspecified; I10 Essential (primary) hypertension; F41.9 Anxiety disorder, unspecified; I48.91 Unspecified atrial fibrillation; Z79.01 Long term (current) use of anticoagulants; Z86.010 Personal history of colon polyps; E03.9 Hypothyroidism, unspecified; E11.9 Type 2 diabetes mellitus without complications; N40.0 Benign prostatic hyperplasia without lower urinary tract symptoms; K44.9 Diaphragmatic hernia without obstruction or gangrene; K64.8 Other hemorrhoids; K57.90 Diverticulosis of intestine, part unspecified, without perforation or abscess without bleeding; D64.9 Anemia, unspecified; Z92.3 Personal history of irradiation; I25.10 Atherosclerotic heart disease of native coronary artery without angina pectoris; Z79.899 Other long term (current) drug therapy; Q27.33 Arteriovenous malformation of digestive system vessel
CPT/HCPCS: 36415; 36416; 80048; 80053; 82274; 83630; 85025; 85610; 85730; 86850; 86900; 86901; 87045; 87046; 87081; 87324; 87449; 87899; 93005; 96360; A4216; C9113; J0360; J2001; J2704

== ENCOUNTER 2017-11-04 13:39 | Outpatient (CLI) | payer MEDICARE ==
--- NOTE | 2017-11-04 14:26 | RAD ---
TWO VIEWS OF THE CHEST: Comparison: 12-27-08 History: Dyspnea. FINDINGS: Two views of the chest shows an enlarged cardiomediastinal silhouette. The pacemaker is unchanged in position. There is a moderate left pleural effusion with adjacent atelectasis. Degenerative changes a re seen in the spine. IMPRESSION: Moderate left pleural effusion with adjacent atelectasis. POS: [facility]
== END 2017-11-04 13:40 | disposition home or self-care (01) ==
LOC: RAD 13:39
PROVIDERS: ATTEND Internal Medicine Critical Care Medicine
DX: R06.00 Dyspnea, unspecified (principal); J90 Pleural effusion, not elsewhere classified; J98.11 Atelectasis
CPT/HCPCS: 71046

== ENCOUNTER 2017-11-11 09:04 | Day surgery (SDC) | payer MEDICARE ==
[2017-11-11] MEDS ORDERED: Lidocaine 1% PF 5 ML VIAL ONE (09:32)
--- NOTE | 2017-11-11 09:52 | PDOC.THORA ---
Thoracentesis Procedure Note - Procedure Date: 11/11/17 Time: 09:49 - PreProcedure Diagnosis: Left moderate pleural effusion - PostProcedure Diagnosis: Left moderate pleural effusion - Anesthesia Anesthesia: 1% Lidocaine without epinephrine - Description Patient tolerated procedure: well Procedure in Details: Informed consent obtained. Procedure was done in the Daystay suite. Patient was placed in sitting position. Left pleural effusion was first identified by US and marked at approximately 5th 6th intercostal space at mid scapular line Sterile prep with chlorohexidine to skin Sterile drape Local anesthetic 5 ml applied to entry site [id number] catheter placed into pleural space 2L of light brown pleural fluid removed and sent for appropriate studies
--- NOTE | 2017-11-11 10:43 | RAD ---
CHEST ONE VIEW: Comparison: 11-04-17 History: Status post thoracentesis. FINDINGS: There is incomplete expansion of the left lower lobe with resultant pneumothorax in the left lung bas e. The degree of left sided pleural effusion has essentially resolved. Stable lung parenchymal opacif ication and stable configuration of the cardiac silhouette. Stable left sided transvenous pacemaker. IMPRESSION: 1. Interval resolution of previously noted left pleural fluid. 2. Left sided pneumonia, felt to be due to incomplete expansion of the lung. Incomplete expansion is presumed to be due to chronic compression from pleural fluid. POS: [facility]
[2017-11-11 11:35] LABS: BF Color Yellow; Body Fluid Source THORACENTESIS FLD; Clarity Hazy (Clear); RBC Background Count 0.006; RBC Count-Automated 10000 /cumm; Tube # 3; WBC/NonHematic-Auto 598 /cumm
[2017-11-11 11:37] LABS: Pleural Fluid, Protein 3.8 g/dL
--- NOTE | 2017-11-11 12:37 | RAD ---
PORTABLE AP CHEST XRAY: DATE: 11/11/17. HISTORY: Followup left basilar pneumothorax. COMPARISON: 11/11/17 at 0948 hours. FINDINGS: Dual-lead left subclavian cardiac pacemaking device remains in place. Left basilar pneumothorax is a gain present which appears slightly larger in size compared to the prior study, but this is exam is o btained with slightly better depth of inspiration which may account for suggested interval enlargemen t. Findings are probably secondary to incomplete reexpansion of the left lower lobe due to chronic l eft pleural effusion. The right lung remains clear. Cardiac silhouette is magnified by projection b ut borderline enlarged. IMPRESSION: Left basilar pneumothorax which appears slightly larger in size, but this may be related to changes i n depth of respiration between this exam and prior study. As mentioned on prior exam, the pneumothor ax is likely related to interval thoracentesis with incomplete expansion of the left lung base likely due to chronic compression from prior left pleural effusion. POS: [facility]
[2017-11-11 13:01] LABS: BF Segmented Neutrophils 1 %; Cell Count Non Hematic 26 %; Lymphocytes 73 %
== END 2017-11-11 11:10 | disposition home or self-care (01) ==
LOC: SDC 09:04
PROVIDERS: ATTEND Internal Medicine Critical Care Medicine
PROC: 0W9B3ZZ Drainage of Left Pleural Cavity, Percutaneous Approach (ICD-10-PCS; principal; 2017-11-11)
DX: J90 Pleural effusion, not elsewhere classified (principal); J44.9 Chronic obstructive pulmonary disease, unspecified; I48.91 Unspecified atrial fibrillation; K92.2 Gastrointestinal hemorrhage, unspecified; Z95.0 Presence of cardiac pacemaker; Z87.891 Personal history of nicotine dependence
CPT/HCPCS: 32554; 71045; 82150; 82945; 83615; 84157; 84478; 85060; 87070; 87116; 87205; 87206; 88112; 88305; 89051; J2001

== ENCOUNTER 2017-12-09 09:47 | Outpatient (CLI) | payer MEDICARE ==
--- NOTE | 2017-12-09 10:34 | RAD ---
CHEST PA AND LATERAL: HISTORY: A 77-year-old male with a history of dyspnea. COMPARISON: 11/04/17. FINDINGS: Left ICD. Abnormal pleural opacity changes in the left base and minimal blunting in the right costop hrenic angle, evidence for bilateral pleural effusions. Some increased density and indistinction lat eral to the aortic knob on the PA radiograph, this is stable. Minimal bilateral vascular congestion with some increased markings overall stable. IMPRESSION: Left pleural effusion changes, somewhat less prominent. Small right pleural effusion which appears t o be slightly more prominent. Increased density and indistinction overlying the margin of the aortic knob on the left side. Stable increased linear and interstitial markings bilaterally. The previous ly noted left-sided pneumothorax has resolved when compared to 11/11/17 study. POS: [facility]
== END 2017-12-09 09:48 | disposition home or self-care (01) ==
LOC: RAD 09:47
PROVIDERS: ATTEND Internal Medicine Critical Care Medicine
DX: R06.00 Dyspnea, unspecified (principal)
CPT/HCPCS: 71046

== ENCOUNTER 2017-12-17 12:40 | Outpatient (CLI) | payer MEDICARE ==
--- NOTE | 2017-12-17 14:03 | RAD ---
2 VIEWS CHEST: Date: 12/17/17 PROVIDED CLINICAL HISTORY: Pleural effusion. FINDINGS: Comparison made with the study dated 12/09/17. Cardiac and mediastinal silhouette is unchanged in appearance. Left hemithoracic opacity appears unch anged with respect to the prior study. Right lung remains clear. There is no evidence for pneumothora x. IMPRESSION: Stable radiographic appearance of the chest. POS: [facility]
== END 2017-12-17 12:41 | disposition home or self-care (01) ==
LOC: RAD 12:40
PROVIDERS: ATTEND Internal Medicine Critical Care Medicine
DX: J90 Pleural effusion, not elsewhere classified (principal)
CPT/HCPCS: 71046

== ENCOUNTER 2018-01-19 13:17 | Outpatient (CLI) | payer MEDICARE ==
--- NOTE | 2018-01-19 14:07 | RAD ---
CHEST 2 VIEWS: COMPARISON: 12/17/17. HISTORY: Pleural effusion and dyspnea. FINDINGS: Stable left-sided transvenous pacemaker. Persistent opacification and retraction in the left suprahi lar region. Persistent opacification of the left hemithorax. Stable aeration of right lung. No pne umothorax or osseous abnormality. IMPRESSION: No significant change. POS: [facility]
== END 2018-01-19 13:18 | disposition home or self-care (01) ==
LOC: RAD 13:17
PROVIDERS: ATTEND Internal Medicine Critical Care Medicine
DX: R06.00 Dyspnea, unspecified (principal)
CPT/HCPCS: 71046

== ENCOUNTER 2018-04-21 12:55 | Outpatient (CLI) | payer MEDICARE ==
--- NOTE | 2018-04-21 14:48 | RAD ---
TWO VIEWS CHEST: Comparison: 01-19-18 History: Dyspnea. FINDINGS: Two views of the chest shows normal sized cardiomediastinal silhouette. The pacemaker is unchanged in position. There is a small left pleural effusion. No consolidation or mass seen. IMPRESSION: Stable small left pleural effusion. POS: [facility]
== END 2018-04-21 12:56 | disposition home or self-care (01) ==
LOC: RAD 12:55
PROVIDERS: ATTEND Internal Medicine Critical Care Medicine
DX: R06.00 Dyspnea, unspecified (principal); J90 Pleural effusion, not elsewhere classified
CPT/HCPCS: 71046

== ENCOUNTER 2018-05-25 13:30 | Outpatient (CLI) | payer MEDICARE ==
--- NOTE | 2018-05-25 14:52 | RAD ---
TWO VIEWS CHEST: Date: 05-25-18 Comparison: 04-21-18 History: Dyspnea. FINDINGS: There is a new hydropneumothorax on the right. The pneumothorax in the right lung apex is small to mo derate in size and the pleural fluid volume on the right is small. There is a dual-lead transvenous pacing device inserted via a left subclavian approach. There is blunting of the costophrenic angle on the left and streaky opacity in the left base, stable. IMPRESSION: New right sided hydropneumothorax. Results were called to Dr. Dye at 2:05 p.m. 05-25-18. Code CR POS: [facility]
== END 2018-05-25 13:31 | disposition home or self-care (01) ==
LOC: RAD 13:30
PROVIDERS: ATTEND Internal Medicine Critical Care Medicine
DX: R06.00 Dyspnea, unspecified (principal); J94.8 Other specified pleural conditions
CPT/HCPCS: 71046

== ENCOUNTER 2018-05-31 13:05 | Outpatient (CLI) | payer MEDICARE ==
--- NOTE | 2018-05-31 13:30 | RAD ---
CHEST 2 VIEWS: Date: 05/31/18 HISTORY: Dyspnea. Pneumothorax. COMPARISON: 05/25/18. FINDINGS/IMPRESSION: Cardiac silhouette remains partially obscured by prominent scarring along the lateral aspect of the l eft lung and pleura. POS: [facility]
--- NOTE | 2018-06-01 07:20 | RAD ---
CHEST TWO VIEWS: History: Dyspnea. Comparison: 05-25-18 FINDINGS: Cardiac silhouette remains shifted leftward and partially obscured by chronic parenchymal and pleural opacity at the left aspect of the left hemithorax. Right pleural fluid has increased slightly. Right apical pneumothorax is smaller, now at the apex just above the posterior aspect of the right th ird rib. Estimated at 10%. Dual-lead left subclavian cardiac electronic device remains in place. IMPRESSION: 1. Slight interval decrease in size of right apical pneumothorax. 2. Slight interval increase in right pleural fluid. 3. Other chronic type findings are stable. POS: [facility]
== END 2018-05-31 13:06 | disposition home or self-care (01) ==
LOC: RAD 13:05
PROVIDERS: ATTEND Internal Medicine Critical Care Medicine
DX: R06.00 Dyspnea, unspecified (principal); J94.8 Other specified pleural conditions; J93.9 Pneumothorax, unspecified; R91.8 Other nonspecific abnormal finding of lung field
CPT/HCPCS: 71046

== ENCOUNTER → 2018-08-24 | Day surgery (SDC) | payer MEDICARE ==
[2018-08-23 12:57] VITALS: BMI 24.3
--- NOTE | 2018-08-24 10:35 | RAD ---
Exam: Chest one view HISTORY:Status post thoracentesis Comparison: 05/31/2018 FINDINGS: Lungs: Patchy left basilar density Cardiac silhouette:Stable Pulmonary vessels: Normal Pleural Spaces: Mild left pleural effusion Pneumothorax: None of significance Osseous abnormalities: None of acuity. IMPRESSION: No postprocedural pneumothorax identified. Mild left pleural fluid with adjacent parenchymal density.
--- NOTE | 2018-08-24 10:58 | OP ---
DATE OF PROCEDURE: 08/24/2018 PROCEDURE PERFORMED: Right thoracentesis. PREOPERATIVE DIAGNOSIS: Right pleural effusion. POSTOPERATIVE DIAGNOSIS: Right pleural effusion. ANESTHESIA: 1% lidocaine without epinephrine. DESCRIPTION OF PROCEDURE: This procedure was done in the Day Stay area at [facility]. The patient was placed in sitting position. Informed consent was obtained prior to the procedure. He understood the risks involved and agreed to proceed. The right posterior hemothorax was first scanned with ultrasound to identify the best area, which was the fifth-sixth rib at the right scapular line. The entry site was anesthetized with 1% lidocaine without epinephrine after being cleansed with chlorhexidine. A [id number]-S-[id number] catheter was inserted in the pleural space and approximately 1500 mL of brown pleural fluid was removed. The patient tolerated the procedure well. Postoperative x-ray is pending. Job ID: [id number]
[2018-08-24 11:04] LABS: Pleural Fluid, Protein 3.9 g/dL
[2018-08-24 11:07] LABS: Body Fluid Source Thoracentesis Fluid; Clarity Cloudy/Turbid (Clear)
[2018-08-24 11:08] LABS: BF Color Pink; RBC Background Count 0.009; Tube # 3
[2018-08-24 11:09] LABS: RBC Count-Automated 19000 /cumm; WBC/NonHematic-Auto 1520 /cumm
[2018-08-24 12:03] LABS: Cell Count Non Hematic 26 %; Lymphocytes 74 %
[2018-08-24 12:10] LABS: BF Segmented Neutrophils 0 %
== END ==
LOC: SDC/OP 08:43
PROVIDERS: ATTEND Internal Medicine Critical Care Medicine
PROC: 0BJQ3ZZ Inspection of Pleura, Percutaneous Approach (ICD-10-PCS; principal; 2018-08-24)
PROC: BB4BZZZ Ultrasonography of Pleura (ICD-10-PCS; 2018-08-24)
DX: J90 Pleural effusion, not elsewhere classified (principal); Z79.84 Long term (current) use of oral hypoglycemic drugs; Z79.01 Long term (current) use of anticoagulants; Z79.899 Other long term (current) drug therapy
CPT/HCPCS: 32554; 71045; 82150; 82945; 83615; 83986; 84157; 84478; 85060; 87070; 87116; 87205; 87206; 88112; 88305; 89051; J1642

== ENCOUNTER 2018-09-13 11:46 | Outpatient (CLI) | payer MEDICARE ==
--- NOTE | 2018-09-13 12:00 | RAD ---
XR Chest Pa Lat @ [facility] HISTORY: Dyspnea COMPARISON: 08/24/2018 FINDINGS: The heart size is stable. Left-sided pacer device remains in place. Bilateral pleural effus ions are seen, right larger than left. No pneumothoraces are identified. IMPRESSION: Pleural effusions.
== END 2018-09-13 11:47 | disposition home or self-care (01) ==
LOC: RAD 11:46
PROVIDERS: ATTEND Internal Medicine Critical Care Medicine
DX: R06.00 Dyspnea, unspecified (principal); J90 Pleural effusion, not elsewhere classified
CPT/HCPCS: 71046

== ENCOUNTER 2018-09-22 07:16 | Inpatient (IN) | payer MEDICARE ==
[2018-09-21 14:34] VITALS: BMI 24.3
[2018-09-22] MEDS ORDERED: Albuterol Sulfate 2.5 mg/3 ml Neb ONE (10:04)
[2018-09-22] MEDS ORDERED: Albuterol Sulfate 2.5 mg/3 ml Neb NEB SCH (10:15)
[2018-09-22 10:16] LABS: #Lymphocytes 0.4 thou/uL (1.20-3.40); #Monocytes 0.8 thou/uL (0.11-0.59); #Neutrophils 9.5 thou/uL (1.40-6.50); %Basophils 0.4 % (0.0-1.0); %Eosinophils 0.3 % (0.0-10.0); %Lymphocytes 3.7 % (21.0-51.0); %Monocytes 7.7 % (0.0-10.0); %Neutrophils 87.9 % (42.0-75.0); Mean Corpuscular HGB CONC 31.8 g/dL (32.0-36.0); Mean Corpuscular Hemoglobin 29.1 pg (27.0-31.0); Mean Corpuscular Volume 91.3 fL (78.0-98.0); Mean Platelet Volume 6.7 fL (7.4-10.4); Platelet Count 369 thou/uL (130-400); RBC Distribution Width 12.7 % (11.5-14.5); Red Blood Cell (RBC) Count 3.78 mill/uL (4.70-6.10); White Blood Cell (WBC) Count 10.8 thou/uL (4.8-10.8)
[2018-09-22 10:36] LABS: Anion Gap 13 mmol/L (10-20); BUN (Urea Nitrogen) 14 mg/dL (8.4-25.7); Calc. Creatinine Clearance 88 mL/min (70-130); Calcium 9.4 mg/dL (7.8-10.44); Carbon Dioxide 29 mmol/L (23-31); Chloride 100 mmol/L (98-107); Estimated GFR-MDRD Greater than 90; Glucose 136 mg/dL (83-110); Sodium 138 mmol/L (136-145)
[2018-09-22] MEDS ORDERED: Fentanyl 250 MCG/5 ML VIAL ONE (10:41)
[2018-09-22] MEDS ORDERED: Bupivacaine HCl 0.5%/Epinephrine 1:200,000/PF 30 ml Vial ONE (12:37)
[2018-09-22] MEDS ORDERED: SUGAMMADEX SODIUM 200 MG/2 ML VIAL ONE (13:43)
[2018-09-22] MEDS ORDERED: Acetaminophen 325 MG TAB PO PRN (13:51)
[2018-09-22] MEDS ORDERED: HYDROcodone/Acetaminophen 5/325 mg Tablet PO PRN ×2 (13:51)
[2018-09-22] MEDS ORDERED: Sodium Chloride 0.9% 1,000 ML IV SCH (13:51)
[2018-09-22] MEDS ORDERED: Fentanyl 100 MCG/2 ML VIAL SLOW IVP PRN (13:51)
[2018-09-22] MEDS ORDERED: Ketorolac Tromethamine 30 MG/ML VIAL IVP PRN (13:51)
[2018-09-22] MEDS ORDERED: Ondansetron PF 4 MG/2 ML Vial IVP PRN (13:51)
[2018-09-22] MEDS ORDERED: Promethazine HCl 25 MG/ML VIAL SLOW IVP PRN (14:01)
[2018-09-22] MEDS ORDERED: Promethazine HCl 25 MG/ML VIAL IM PRN (14:01)
[2018-09-22] MEDS ORDERED: Ondansetron HCl/PF 4 MG/2 ML Vial IVP PRN (14:01)
--- NOTE | 2018-09-22 14:51 | RAD ---
CHEST FRONTAL RADIOGRAPH: 09/22/2018 HISTORY: Evaluate chest, following thoracotomy. COMPARISON: 09/13/2018 FINDINGS: There is a small pneumothorax in the right lung apex. A right chest tube is in place. There is a st able dual-lead transvenous pacing device. No pneumothorax is seen on the left. Pleural density noted on the prior examination, within the righ t lung base, has improved following thoracotomy. There is stable blunting of the costophrenic angle on the left, suggesting left pleural fluid. IMPRESSION: Small apical pneumothorax on the right. Right chest tube in place. Stable pleural density in the le ft base. POS: [facility]
[2018-09-22] MEDS ORDERED: Rocuronium Bromide 10 MG/ML (10ML VIAL) ONE (16:13)
[2018-09-22] MEDS ORDERED: Glycopyrrolate 0.2 MG/ML 5 ML SYRINGE ONE (16:13)
[2018-09-22] MEDS ORDERED: PHENYLEPHRINE-NS 100 MCG/ML 10 ML SYRINGE ONE (16:13)
[2018-09-22] MEDS ORDERED: Ondansetron PF 4 MG/2 ML Vial ONE (16:13)
[2018-09-22] MEDS ORDERED: PROPOFOL 200 MG/20 ML VIAL ONE (16:13)
[2018-09-22] MEDS ORDERED: ePHEDrine 50 MG/ML VIAL ONE (16:13)
[2018-09-22] MEDS ORDERED: Lidocaine 1% PF 5 ML VIAL ONE (16:13)
[2018-09-22] MEDS ORDERED: Melatonin 3 MG TAB PO PRN (17:18)
[2018-09-22] MEDS: CEFAZOLIN 2 GM in Premix Bag 1 BAG IVPB SCH (17:46)
[2018-09-22] MEDS: Enoxaparin Sodium 30 MG/0.3 ML SYRINGE SC SCH (20:19)
[2018-09-22] MEDS: Tamsulosin HCl 0.4 MG CAP PO SCH (20:20)
[2018-09-23] MEDS: CEFAZOLIN 2 GM in Premix Bag 1 BAG IVPB SCH ×2 (02:20→09:14)
[2018-09-23] MEDS: Levothyroxine Sodium 100 MCG TAB PO SCH (05:42)
[2018-09-23] MEDS ORDERED: Furosemide 40 MG TAB PO SCH (07:30)
--- NOTE | 2018-09-23 07:41 | RAD ---
Portable chest: HISTORY: Postthoracotomy COMPARISON: 09/22/2018 Cardiomegaly. Bilateral effusions and bibasilar atelectasis. Right-sided chest tube again noted. Prob able small right apical pneumothorax remains. IMPRESSION: No significant interval change
[2018-09-23] MEDS ORDERED: Potassium Chloride 10 MEQ TAB PO SCH (08:00)
--- NOTE | 2018-09-23 08:52 | CT ---
CT OF THE ABDOMEN AND PELVIS WITH IV CONTRAST INDICATION: Weight loss and recurrent effusions COMPARISON: Chest radiograph dated September 23, 2018 FINDINGS: ABDOMEN: Lung bases: There is a small right-sided hydropneumothorax with right-sided thoracostomy tube. There is areas of subsegmental volume loss involving both lower lobes. There is a small left pleural effusion. There is a moderate pericardial effusion. There is a mild-sized hiatal hernia. Liver: Diffuse fatty infiltration Gallbladder: Normal appearing. Pancreas: Normal. Adrenal glands: Normal. Spleen: Normal. Kidneys: Normal. Retroperitoneum of the upper abdomen: There is mild ectasia of the infrarenal abdominal aorta measuri ng up to 2.5 cm. There is moderate to severe calcifications involving the abdominal pelvic vasculature. No pathologically enlarged lymph nodes are evident. Pelvis: Small and large bowel: There are scattered diverticula involving the colon without evidence of active diverticulitis. The small and large bowel are of normal caliber. Bladder: Normal. Rectal and perirectal soft tissues:Normal. Reproductive structures: The prostate is enlarged measuring 6.1 cm Free fluid in pelvis: No free fluid is evident. Lymphadenopathy pelvis: No lymphadenopathy is evident. Osseous structures: No acute osseous abnormality. No destructive osteolytic or osteoblastic lesion i s identified. There is scattered degenerative and osteoarthritic changes. IMPRESSION: 1. Small right-sided hydropneumothorax with associated right-sided chest tube. 2. Bilateral pleural effusions with moderate sized pericardial effusion. 3. Fatty liver 4. Colonic diverticulosis 5. Infrarenal abdominal aortic ectasia
[2018-09-23] MEDS: Enoxaparin Sodium 30 MG/0.3 ML SYRINGE SC SCH ×2 (09:13→20:01)
[2018-09-23] MEDS: Tamsulosin HCl 0.4 MG CAP PO SCH ×2 (09:14→19:59)
[2018-09-23] MEDS: Losartan 25 MG TAB PO SCH (09:14)
--- NOTE | 2018-09-23 09:39 | PRG ---
DATE OF SERVICE: 09/23/2018 SUBJECTIVE: The patient is status post thoracoscopy yesterday. He feels okay at the current time, has no complaints. OBJECTIVE: VITAL SIGNS: On exam, temperature 97.9, pulse 85, respirations 16, O2 saturation 91%, blood pressure 160/75. HEENT: Unremarkable. NECK: No JVD. LUNGS: He has a thoracoscopy tube right side. Left side clear. CARDIAC: S1 and S2. Regular. ABDOMEN: Soft. EXTREMITIES: No edema. IMAGING STUDIES: CT of the abdomen demonstrated the bilateral pleural effusions and a moderate-sized pericardial effusion. He has a fatty liver. No evidence of retroperitoneal lymphadenopathy. ASSESSMENT: 1. Recurring pleural effusions and lymphocytic exudates. 2. Pericardial effusion. 3. Previous malignancy-the patient is very vague in description other than it happened back around 1999. RECOMMENDATIONS: 1. Await pleural biopsies. 2. May require further workup of the pericardial effusion. 3. Following. Job ID: [id number]
[2018-09-24] MEDS: Levothyroxine Sodium 100 MCG TAB PO SCH (05:36)
[2018-09-24] MEDS ORDERED: ALPRAZolam 0.25 MG TAB PO SCH (06:45)
[2018-09-24] MEDS ORDERED: Furosemide 40 MG/4 ML VIAL SLOW IVP SCH (07:30)
--- NOTE | 2018-09-24 07:47 | RAD ---
Portable chest: HISTORY: Follow-up thoracotomy COMPARISON: 09/23/2018 FINDINGS:Cardiomegaly. Vascular congestion. Bibasilar atelectasis and or infiltrates and small bilate ral effusions. Right-sided chest tube. Continued evidence of small right apical pneumothorax. IMPRESSION:Congestive changes have increased. Otherwise findings appear stable.
[2018-09-24] MEDS: Tamsulosin HCl 0.4 MG CAP PO SCH (08:37)
[2018-09-24] MEDS: Losartan 25 MG TAB PO SCH (08:37)
[2018-09-24] MEDS: Enoxaparin Sodium 30 MG/0.3 ML SYRINGE SC SCH (08:38)
--- NOTE | 2018-09-24 10:19 | PRG ---
DATE OF SERVICE: 09/24/2018 SUBJECTIVE: Mr. Lam has chest tube removed. He appears comfortable. OBJECTIVE: VITAL SIGNS: Temperature 97.6, pulse 89, respirations 20, O2 saturation 95% on 2.5 L, and blood pressure 135/69. HEENT: Unremarkable. NECK: No JVD. LUNGS: Inspiratory crackles in the right base, clear on the left. CARDIAC: S1 and S2. Regular. ABDOMEN: Soft. EXTREMITIES: No edema. LABORATORY DATA: No labs were done today. Pathology report was negative. ASSESSMENT: Pleural effusion, which appears to be the result of post radiation changes from almost 20 years ago. Records from that cannot be found. RECOMMENDATIONS: I think the best we can do is try to symptomatically manage this with diuretics. He may eventually need PleurX catheter placement, but I would wait and see how he does since this recent surgery. Sometimes surgery will result in auto-pleurodesis. I will need to see him in the office in about 3 or 4 weeks. Job ID: [id number]
[2018-09-24 11:51] VITALS: BP 130/70; TEMP 97.8
--- NOTE | 2018-09-27 08:47 | DIS ---
DATE OF ADMISSION: 09/22/2018 DATE OF DISCHARGE: 09/24/2018 The patient was admitted for a thoracoscopy which was undertaken, ultimately biopsy showing inflammatory changes. Chest drain was removed on postoperative day #2. Cardiac echo was done showing moderate mitral regurgitation, severe tricuspid regurgitation with pacer wires present in the right ventricle, and a normal ejection fraction. A CT scan of the abdomen was also done while he was in the hospital showing mild ectasia of the abdominal aorta, fatty liver, and a pericardial effusion which was not mentioned on cardiac echo. The patient was discharged home with presumed radiation injury to his mediastinum with resultant pleural and pericardial effusions. Job ID: [id number]
--- NOTE | 2018-09-27 08:47 | OP ---
DATE OF PROCEDURE: 09/22/2018 PREOPERATIVE DIAGNOSIS: Recurrent right pleural effusion. PROCEDURE: Thoracoscopy with pleural biopsy. ANESTHESIA: General. DESCRIPTION OF PROCEDURE: After adequate anesthesia had been obtained, the patient was prepped and draped. The site was chosen for port entry near a previous tattoo kait from radiation treatments. The port was placed after blunt dissection, entered the pleural space and fluid was aspirated under direct vision. Second site was then chosen for biopsy forceps and multiple pleural biopsies were obtained. There was a light chain to the parietal pleura. After multiple biopsies had been obtained, a Burke drain was then placed to a Pleur-evac and wounds were closed after Marcaine infiltration. Job ID: [id number]
--- NOTE | 2018-09-29 14:11 | EKG ---
Test Reason : PREOP Blood Pressure : / mmHG Vent. Rate : 079 BPM Atrial Rate : 079 BPM P-R Int : 000 ms QRS Dur : 082 ms QT Int : 382 ms P-R-T Axes : 108 -15 022 degrees QTc Int : 438 ms Normal sinus rhythm Normal ECG Confirmed by PUMA PRADO ([id number]) on 09/29/2018 2:11:17 PM Referred By: HONEY Confirmed By:PUMA PRADO
== END 2018-09-24 14:35 | disposition home or self-care (01) | DRG 167 ==
LOC: SURG A 08:42 → SURG B 15:11
PROVIDERS: ADMIT Thoracic Surgery (Cardiothoracic Vascular Surgery); ATTEND Thoracic Surgery (Cardiothoracic Vascular Surgery)
PROC: 0BBN4ZX Excision of Right Pleura, Percutaneous Endoscopic Approach, Diagnostic (ICD-10-PCS; principal; 2018-09-22)
PROC: 0W9940Z Drainage of Right Pleural Cavity with Drainage Device, Percutaneous Endoscopic Approach (ICD-10-PCS; 2018-09-22)
DX: J90 Pleural effusion, not elsewhere classified (principal); I31.3 Pericardial effusion (noninflammatory); I48.91 Unspecified atrial fibrillation; I08.1 Rheumatic disorders of both mitral and tricuspid valves; K76.0 Fatty (change of) liver, not elsewhere classified; Z85.21 Personal history of malignant neoplasm of larynx; Z92.21 Personal history of antineoplastic chemotherapy; Z92.3 Personal history of irradiation; Z87.891 Personal history of nicotine dependence; Z79.01 Long term (current) use of anticoagulants; Z79.899 Other long term (current) drug therapy; Z95.0 Presence of cardiac pacemaker; Y84.2 Radiological procedure and radiotherapy as the cause of abnormal reaction of the patient, or of later complication, without mention of misadventure at the time of the procedure
CPT/HCPCS: 71045; 74177; 80048; 85025; 88305; 93005; 93010; 93306; 94640; J0670; J0690; J1642; J1650; J1940; J2001; J2405; J2704; J3010; J3490; J7611

== ENCOUNTER 2018-10-01 13:50 | Inpatient (IN) | payer MEDICARE ==
--- NOTE | 2018-10-01 14:15 | RAD ---
XR Chest 1 View Portable History: [Shortness of breath] Comparison: Radiograph September 24, 2018 Findings: Heart size is enlarged. Mild effusions. Moderate edema. Superimposed right basilar airspace opacity. Right peripheral pleural thickening. Removal of the righ t thoracostomy tube. Impression: Concern for superimposed right lower lobe pneumonia.
[2018-10-01 14:16] LABS: #Basophils 0.1 thou/uL (0.0-0.2); #Lymphocytes 0.2 thou/uL (1.20-3.40); #Monocytes 0.8 thou/uL (0.11-0.59); #Neutrophils 17.1 thou/uL (1.40-6.50); %Basophils 0.4 % (0.0-1.0); %Eosinophils 0.2 % (0.0-10.0); %Lymphocytes 0.8 % (21.0-51.0); %Monocytes 4.4 % (0.0-10.0); %Neutrophils 94.2 % (42.0-75.0); Mean Corpuscular HGB CONC 32.4 g/dL (32.0-36.0); Mean Corpuscular Hemoglobin 28.7 pg (27.0-31.0); Mean Corpuscular Volume 88.6 fL (78.0-98.0); Mean Platelet Volume 6.8 fL (7.4-10.4); Platelet Count 363 thou/uL (130-400); RBC Distribution Width 12.9 % (11.5-14.5); Red Blood Cell (RBC) Count 3.82 mill/uL (4.70-6.10); White Blood Cell (WBC) Count 18.2 thou/uL (4.8-10.8)
[2018-10-01] MEDS ORDERED: Albuterol Sulfate 2.5 mg/3 ml Neb ONE ×2 (14:26→14:27)
[2018-10-01 14:40] LABS: ALT (SGPT) 17 U/L (8-55); AST (SGOT) 19 U/L (5-34); Albumin 3.4 g/dL (3.4-4.8); Alkaline Phosphatase 101 U/L (40-150); Anion Gap 14 mmol/L (10-20); BUN (Urea Nitrogen) 22 mg/dL (8.4-25.7); Bilirubin, Total 0.8 mg/dL (0.2-1.2); CK (CPK) 86 U/L (30-200); Calc. Creatinine Clearance 0 mL/min (70-130); Calcium 8.8 mg/dL (7.8-10.44); Carbon Dioxide 31 mmol/L (23-31); Chloride 92 mmol/L (98-107); Estimated GFR-MDRD Greater than 90; Globulin 3.1 g/dL (2.4-3.5); Glucose 245 mg/dL (83-110); Potassium 4.6 mmol/L (3.5-5.1); Protein, Total 6.5 g/dL (5.8-8.1); Sodium 132 mmol/L (136-145)
[2018-10-01 14:57] LABS: Bilirubin Negative (Negative); Blood, Urine Negative (Negative); Clarity CLEAR (Clear); Glucose, Urine (Dipstick) 100 mg/dL (Negative); Leukocyte Negative (Negative); Nitrite Negative (Negative); Protein, Urine (Dipstick) Negative (Neg-Trace); Specific Gravity, Urine 1.014 (1.002-1.036); pH, Urine 5.5 (5.0-9.0)
[2018-10-01] MEDS ORDERED: Piperacillin/Tazobactam 4.5 GM VIAL ONE (14:57)
[2018-10-01 15:12] LABS: CKMB 9.9 ng/mL (0-6.6)
[2018-10-01] MEDS ORDERED: Aspirin Chewable 81 MG TAB ONE (15:40)
[2018-10-01] MEDS ORDERED: Ondansetron PF 4 MG/2 ML Vial ONE (16:06)
[2018-10-01] MEDS ORDERED: Ondansetron PF 4 MG/2 ML Vial IVP PRN ×2 (16:50→17:42)
[2018-10-01] MEDS ORDERED: Ondansetron ODT 4 MG TAB SL PRN (16:50)
[2018-10-01] MEDS ORDERED: Sodium Chloride 0.9% 1,000 ML IV SCH (16:50)
[2018-10-01] MEDS ORDERED: Diabetic Tussin 200 MG/10 ML UDCUP PO PRN (17:42)
[2018-10-01] MEDS ORDERED: Acetaminophen 500 MG TAB PO PRN (17:42)
[2018-10-01] MEDS ORDERED: Benzonatate 100 MG CAP PO PRN (17:42)
[2018-10-01] MEDS ORDERED: busPIRone HCl 5 MG TAB PO PRN (17:42)
[2018-10-01] MEDS ORDERED: hydrALAZINE 20 MG/ML VIAL SLOW IVP PRN (17:42)
[2018-10-01] MEDS ORDERED: Ondansetron ODT 4 MG TAB PO PRN (17:42)
[2018-10-01] MEDS: PROVENTIL INHALER 6.7 G (200 INHALATIONS) INH SCH (18:10)
[2018-10-01] MEDS ORDERED: Metamucil PACK PO SCH (18:30)
[2018-10-01] MEDS: Sodium Chloride 0.9% 1,000 ML IV SCH (18:38)
[2018-10-01] MEDS: Cefepime 2 GM in Sodium Chloride 0.9% 100 ML IVPB SCH (18:38)
[2018-10-01 18:45] LABS: Lactic Acid 2.5 mmol/L (0.5-2.2)
[2018-10-01 18:58] LABS: Troponin I 0.634 ng/mL (< 0.028)
[2018-10-01] MEDS: Melatonin 3 MG TAB PO SCH (19:32)
[2018-10-01] MEDS: Atorvastatin Calcium 40 MG TAB PO SCH (19:32)
[2018-10-01] MEDS: Temazepam 15 MG CAP PO PRN (19:32)
[2018-10-01] MEDS: Apixaban 5 MG TAB PO SCH (19:33)
[2018-10-01] MEDS: Tamsulosin HCl 0.4 MG CAP PO SCH (19:33)
[2018-10-01] MEDS: Famotidine 20 MG TAB PO SCH (19:33)
[2018-10-01] MEDS ORDERED: Piperacillin/Tazobactam 3.375 GM in Sodium Chloride 0.9% 100 ML IVPB SCH (21:00)
[2018-10-01 21:22] LABS: Critical Call Chem Troponin I RESULT DECREASING; Troponin I 0.533 ng/mL (< 0.028)
--- NOTE | 2018-10-02 | HP ---
PRIMARY CARE PROVIDER: Dr. Neel Cerrato of [place], [place]. CHIEF COMPLAINT: Weakness and shortness of breath. HISTORY OF PRESENT ILLNESS: This is a 78-year-old male, who presents to [facility] complaining of persistent fatigue, shortness of breath, and hypoxia in the last 24 to 48 hours. The patient states he was recently admitted to [facility] from 09/22/2018 through 09/24/2018 after development of inflammatory changes in the mediastinum and pleural region with associated pericardial and pleural effusions. The patient underwent a thoracoscopy with multiple biopsies obtained with the pathology showing inflammatory changes and fibrosis, but negative for malignant process. The patient states he was discharged home, but became increasingly weak, fatigued and felt like he was depressed. The patient felt some chills and turned the heat up in his house, but did not take his temperature or document a specific fever. The patient continued to decline and sought medical assistance at his primary care provider's office where pulse oximeter was performed showing O2 saturations in the 70% range. The patient was placed on oxygen supplementation and referred to [facility] Emergency Department for evaluation. The patient underwent chest imaging showing right lower lobe infiltrate at which point patient continued on oxygen supplementation at 3 L/min by nasal cannula and received IV Levaquin and vancomycin and Zosyn in addition to intravenous normal saline and bronchodilator therapy with DuoNeb. 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 The patient apparently sustained radiation induced changes from the treatment, but denies chronic oxygen use or prior need for oxygen prescription. The patient admits to some cough that is nonproductive, but denied any hemoptysis. The patient denies any specific chest pain, travel history, or family members with similar symptoms. The patient does admit that he was recently placed on BuSpar and sertraline by his primary care provider within the last 4 to 5 days prior to this evaluation. PAST MEDICAL HISTORY: 1. Pleural effusion likely reactive from radiation induced changes in the mediastinum. 2. Vocal cord carcinoma, status post radiation chemotherapy. 3. Anxiety disorder. 4. Chronic atrial fibrillation, on chronic anticoagulation with Eliquis. 5. Gastroesophageal reflux disease. 6. Benign prostatic hyperplasia. 7. Hyperlipidemia. 8. Recurrent right pleural effusion. 9. Hypertension. 10. Hypothyroidism. PAST SURGICAL HISTORY: 1. Status post right thoracentesis 08/24/2018. 2. Status post thoracoscopy with multiple pleural biopsies 09/2018. 3. Status post pacemaker placement with subsequent replacement. 4. Status post angioplasty. CURRENT MEDICATIONS: 1. Albuterol sulfate 2 puffs inhaled b.i.d. 2. Eliquis 5 mg p.o. b.i.d. 3. Lipitor 40 mg p.o. at bedtime. 4. BuSpar 5 mg p.o. daily p.r.n. 5. Vitamin D3 1000 units p.o. q.a.m.. 6. Vitamin B12 1000 mcg p.o. daily. 7. Ferrous sulfate 325 mg p.o. q.48 hours. 8. Lasix 20 mg p.o. daily. 9. Levothyroxine 100 mcg p.o. daily. 10. Losartan 25 mg p.o. daily. 11. Melatonin 5 mg p.o. at bedtime. 12. Omeprazole 40 mg p.o. at bedtime. 13. Klor-Con 10 mEq p.o. daily. 14. Metamucil 660 g p.o. at bedtime. 15. Sertraline 25 mg p.o. at bedtime. 16. Tamsulosin 0.4 mg p.o. at bedtime. 17. Anoro Ellipta 62.5 mcg/25 mcg one puff inhaled daily. ALLERGIES: NO KNOWN DRUG ALLERGIES. FAMILY HISTORY: Father diseased at 58 years of age secondary to coronary artery disease. Mother at 84 years of age. SOCIAL HISTORY: The patient is , accompanied by his in the hospital. Resides in [place], [place]. Former tobacco use, none over the last 10 years. Occasional alcohol use. No illicit drug use. REVIEW OF SYSTEMS: CONSTITUTIONAL: Negative for weight loss or gain, ability to conduct usual activities. SKIN: Negative for rash, itching. EYES: Negative for double vision, pain. ENT/MOUTH: Negative for nose bleeding, neck stiffness, pain, tenderness. CARDIOVASCULAR: Negative for palpitations, dyspnea on exertion, orthopnea. RESPIRATORY: Negative for shortness of breath, wheezing, cough, hemoptysis, fever or night sweats. GASTROINTESTINAL: Negative for poor appetite, abdominal pain, heartburn, nausea, vomiting, constipation, or diarrhea. GENITOURINARY: Negative for urgency, frequency, dysuria, nocturia. MUSCULOSKELETAL: Negative for pain, swelling. NEUROLOGIC/PSYCHIATRIC: Negative for anxiety, depression. ALLERGY/IMMUNOLOGIC: Negative for skin rash, bleeding tendency. Otherwise, negative except as stated per HPI. PHYSICAL EXAMINATION: VITAL SIGNS: On admission. Blood pressure 122/73, pulse 87, respiratory rate 31, temperature 98 degrees Fahrenheit, O2 saturation 97% on 3 L/min by nasal cannula. GENERAL APPEARANCE: This is a 78-year-old male, alert and oriented x3, pleasant, responsive, in no acute distress. HEENT: Pupils are equal, round, reactive to light and accommodation. Extraocular muscles are intact. No scleral icterus. No conjunctival injection. Nares patent. OP is clear. Teeth in good repair. NECK: Supple. No cervical adenopathy. No thyromegaly. No carotid bruits. No JVD appreciated. Cervical spine with full active and passive range of motion. No meningeal signs noted. CHEST: Lungs are clear to auscultation bilaterally with mild decrease in breath sounds in the right lung base. CARDIOVASCULAR: S1 and S2 without noted murmur, rub, or gallop. ABDOMEN: Rounded, soft, nontender, and nondistended. Bowel sounds are positive in all 4 quadrants. There is no hepatosplenomegaly. No abdominal bruits. No rebound or guarding appreciated. EXTREMITIES: Warm and dry with fair turgor. No clubbing, cyanosis, or asymmetric edema appreciated. Pulses palpable distally at the dorsalis pedis, posterior tibial, and popliteal arteries bilaterally. Capillary refill less than 2 seconds. NEUROLOGIC: Cranial nerves 2 through 12 are grossly intact. No focal or lateralizing signs appreciated. PERTINENT LAB AND X-RAY FINDINGS: Sodium 132, potassium 4.6, chloride is 92, CO2 of 31, BUN 22, creatinine 0.66, glucose 245. Lactic acid level 2.3, calcium 8.8. LFTs within normal limits. Troponin I is 0.477. BNP 205. Lipase 13. CBC showed a white blood cell count 18.2, hemoglobin 11, hematocrit 34, and platelet count 363 with 94% neutrophils. Urinalysis positive for glucose. Portable chest x-ray dated 10/01/2018, showed right lower lobe infiltrate. EKG dated 10/01/2018, by my interpretation shows sinus mechanism with heart rates in the 80s. Attenuated R-waves in the precordial leads. T-wave inversion in lead V4 through V6 and leads 2, 3, and aVF. ASSESSMENT AND PLAN: 1. Acute hypoxic respiratory failure. Suspect related to right lower lobe pneumonia. We will continue oxygen supplementation to maintain O2 saturations greater than or equal to 90%. See treatment as outlined below for further management. 2. Right lower lobe pneumonia. Recent hospitalization through 2018. We will continue cefepime 2 g IV q.12 hours with additional vancomycin 1 g IV q.12 hours. Blood cultures pending x2. Consult Pulmonology Service for further recommendations given patient's history of recurrent right pleural effusion. 3. Chronic atrial fibrillation, on chronic anticoagulation with Eliquis. Currently in sinus mechanism. We will continue rate control measures. Continue Eliquis 5 mg b.i.d. Continue telemetry monitoring. 4. Recurrent pleural effusion. 5. Status post thoracoscopy with inflammatory changes noted in pleural fluid with biopsy showing inflammation and fibrosis. No malignancy identified. Consult Pulmonology Service for any further recommendations. 6. Anxiety disorder. Resume home regimen to include BuSpar 5 mg daily, sertraline 25 mg daily. 7. Prophylaxis. SCDs while in bed. Pepcid 20 mg p.o. b.i.d. PT evaluation for functional assessment. CODE STATUS: Full. Surrogate medical decision maker is the patient's spouse. Job ID: [id number]
[2018-10-02] MEDS ORDERED: Temazepam 15 MG CAP PO SCH (02:15)
[2018-10-02] MEDS: Vancomycin HCl 1 GM in Premix Bag 1 BAG IVPB SCH ×2 (04:15→15:56)
[2018-10-02] MEDS: Levothyroxine Sodium 100 MCG TAB PO SCH (05:55)
[2018-10-02] MEDS: Sodium Chloride 0.9% 1,000 ML IV SCH ×2 (05:55→23:33)
[2018-10-02] MEDS: Cefepime 2 GM in Sodium Chloride 0.9% 100 ML IVPB SCH ×2 (05:57→17:20)
[2018-10-02 06:29] LABS: Hemoglobin 10.8 g/dL (14.0-18.0); Mean Corpuscular HGB CONC 30.2 g/dL (32.0-36.0); Mean Corpuscular Hemoglobin 27.9 pg (27.0-31.0); Mean Corpuscular Volume 92.2 fL (78.0-98.0); Mean Platelet Volume 6.9 fL (7.4-10.4); Platelet Count 354 thou/uL (130-400); RBC Distribution Width 12.9 % (11.5-14.5); Red Blood Cell (RBC) Count 3.89 mill/uL (4.70-6.10); White Blood Cell (WBC) Count 18.8 thou/uL (4.8-10.8)
[2018-10-02 06:40] LABS: Anion Gap 10 mmol/L (10-20); BUN (Urea Nitrogen) 19 mg/dL (8.4-25.7); Calc. Creatinine Clearance 81 mL/min (70-130); Calcium 8.8 mg/dL (7.8-10.44); Carbon Dioxide 30 mmol/L (23-31); Chloride 96 mmol/L (98-107); Estimated GFR-MDRD Greater than 90; Glucose 181 mg/dL (83-110); Potassium 4.8 mmol/L (3.5-5.1); Sodium 131 mmol/L (136-145)
[2018-10-02 06:42] LABS: Band 3 % (5-11); Monocytes 3 % (0-10); Neutrophil 94 % (42-75)
[2018-10-02 06:44] LABS: MDiff Complete? YES
[2018-10-02] MEDS: PROVENTIL INHALER 6.7 G (200 INHALATIONS) INH SCH ×2 (06:48→18:39)
[2018-10-02] MEDS ORDERED: Sodium Chloride 0.9% 10 ML ONE (07:58)
[2018-10-02] MEDS: Ferrous Sulfate 325 MG TAB PO SCH ×2 (08:40→08:48)
[2018-10-02] MEDS: Furosemide 20 MG TAB PO SCH (08:47)
[2018-10-02] MEDS: Famotidine 20 MG TAB PO SCH ×2 (08:47→20:55)
[2018-10-02] MEDS: Potassium Chloride 10 MEQ TAB PO SCH (08:47)
[2018-10-02] MEDS: Cyanocobalamin (Vitamin B-12) 1,000 MCG TAB PO SCH (08:47)
[2018-10-02] MEDS: Apixaban 5 MG TAB PO SCH ×2 (08:48→20:56)
[2018-10-02] MEDS: Losartan 25 MG TAB PO SCH (08:48)
[2018-10-02] MEDS ORDERED: Non-Formulary Item 1 EACH (Umeclidinium Brm/Vilanterol Tr [Anoro Ellipta] 1 PUFF) INH SCH (09:00)
[2018-10-02 12:39] VITALS: BMI 21.4
--- NOTE | 2018-10-02 13:45 | EKG ---
Test Reason : SOB Blood Pressure : / mmHG Vent. Rate : 086 BPM Atrial Rate : 086 BPM P-R Int : 134 ms QRS Dur : 086 ms QT Int : 382 ms P-R-T Axes : 044 -17 -59 degrees QTc Int : 457 ms Normal sinus rhythm Minimal voltage criteria for LVH, may be normal variant Anterior infarct , age undetermined T wave abnormality, consider lateral ischemia Abnormal ECG Confirmed by RODO ACEVEDO, OSWALD ([id number]), editorial clerk JACK GARCIA ([id number]) on 10/02/2018 1:45:44 PM Referred By: Confirmed By:OSWALD KOEHLER MD
[2018-10-02] MEDS ORDERED: Bacteriostatic Water 30 ML VIAL FS PRN (13:49)
--- NOTE | 2018-10-02 14:56 | CON ---
DATE OF CONSULTATION: 10/02/2018 CONSULT PHYSICIANS: Hospitalist group. REASON FOR CONSULTATION: Pneumonia. HISTORY OF PRESENT ILLNESS: Mr. Lam is a pleasant 78-year-old male, who is well known to me from previous office visits and hospital admissions. He most recently was in the hospital for thoracoscopy of a chronic right pleural effusion, which is felt to be secondary to postinflammatory radiation changes from radiation received about 20 years ago as treatment for lung cancer. He had just gone home Thursday a week ago. By Thursday, he was developing shortness of breath and cough. He sought care with his physician yesterday and subsequent transferred here on ambulance. Apparently at his physician's office, O2 saturation was in the 70% range. He had an x-ray obtained here which showed a right lower lobe infiltrate, which was probably new compared to previous, although it is difficult to tell in the face of recent thoracoscopy on that side. He is currently napping. He will wake up. He is not conversant as usual. Most of the history I have is obtained from his . PAST MEDICAL HISTORY: 1. Chronic bilateral pleural effusions, right greater than left. 2. Vocal cord carcinoma. 3. Anxiety. 4. Chronic atrial fibrillation. 5. Gastroesophageal reflux disease. 6. Benign prostatic hypertrophy. 7. Hyperlipidemia. 8. Hypertension. 9. Hypothyroidism. PAST SURGICAL HISTORY: 1. Thoracoscopy. 2. Pacemaker placement. 3. Angioplasty medications prior to admission, these were reviewed see chart. ALLERGIES: NONE. FAMILY MEDICAL HISTORY: Remarkable for coronary artery disease. SOCIAL HISTORY: Lives in [place]. Quit smoking over 10 years ago. Does not consume alcohol. REVIEW OF SYSTEMS: Remarkable for fever, weight loss, decreased appetite, shortness of breath, and cough. A 12-point review of systems is otherwise negative. PHYSICAL EXAMINATION: VITAL SIGNS: Temperature 97.9, pulse 83, respirations 18, O2 saturation 91% on 3 L, and blood pressure 114/56. GENERAL: He is arousable. He looks ill. HEENT: Unremarkable. No adenopathy or JVD. LUNGS: He has inspiratory crackles at the right lower lobe. CARDIOVASCULAR: S1 and S2. Regular. ABDOMEN: Soft. EXTREMITIES: No edema. IMAGING: Chest x-ray shows right lower lobe infiltrative changes. LABORATORY DATA: White blood cell count 18.8, hematocrit 35.8, and platelet count 354. Sodium 131, potassium 4.8, chloride 96, CO2 of 30, BUN 19, creatinine 0.7, and glucose 181. ASSESSMENT: 1. Right lower lobe pneumonia - probably hospital-acquired. 2. Chronic obstructive pulmonary disease. 3. Chronic pleural effusions. 4. Chronic atrial fibrillation. 5. Previous history of lung cancer with radiation therapy and resultant scarring to the lungs. PLAN: I will go ahead and add steroids to his treatment regimen. I agree with the cefepime and vancomycin. We will follow with you. Thank you for the referral. Job ID: [id number]
[2018-10-02] MEDS ORDERED: Metamucil PACK PO SCH ×2 (15:00→16:00)
--- NOTE | 2018-10-02 16:12 | PDOC.PN ---
- Subjective Encounter Start Date: 10/02/18 Encounter Start Time: 11:45 Mr. Lam was seen today in follow-up of acute respiratory failure with hypoxemia. He says he is feeling a little better today. He is a bit less short of breath. - Objective Resuscitation Status - Order Detail: 10/01/18 17:29 Resuscitation Status Routine Resuscitation Status: FULL: Full Resuscitation MAR Reviewed: Yes Vital Signs & Weight: Vital Signs (12 hours) Temp Pulse Pulse Resp BP BP Pulse Ox 10/02/18 12:45 97.9 F 83 18 114/56 L 91 L 10/02/18 10:26 95 144/73 H 10/02/18 08:34 98.2 F 89 20 153/63 H 92 L 10/02/18 06:50 96 10/02/18 06:48 85 16 96 Weight Admit Weight 148 lb 12.8 oz Weight 145 lb I&O: 10/01/18 10/02/18 10/03/18 06:59 06:59 06:59 Intake Total 1640 Output Total 1000 Balance 640 Result Diagrams: 10/02/18 06:18 10/02/18 06:18 Phys Exam - Physical Examination HEENT: PERRLA, sclera anicteric Respiratory: no rhonchi, wheezing present + wheezing bilaterally and rales at the right base and mid lung Cardiovascular: RRR, no significant murmur, no rub Gastrointestinal: soft, non-tender, no distention, positive bowel sounds Musculoskeletal: no edema, pulses present Dx/Plan (1) Acute respiratory failure with hypoxia Code(s): J96.01 - ACUTE RESPIRATORY FAILURE WITH HYPOXIA Status: Acute (2) Healthcare-associated pneumonia Code(s): J18.9 - PNEUMONIA, UNSPECIFIED ORGANISM Status: Acute (3) COPD (chronic obstructive pulmonary disease) Status: Chronic Comment: no exacerbation (4) HTN (hypertension) Code(s): I10 - ESSENTIAL (PRIMARY) HYPERTENSION Status: Acute (5) Atrial fibrillation Code(s): I48.91 - UNSPECIFIED ATRIAL FIBRILLATION Status: Chronic Comment: rate controlled, no anticoagulation, high risk for Stroke, pt aware of it. - Plan * Acute respiratory failure due to Pneumonia- continue Vancomycin and Zosyn * AFIB- his heart rate is stable. Continue Eliquis for stroke prevention * HTN- blood pressure is controlled * COPD- mild exacerbation- Pulmonary input appreciated- he has been started on steroids * Re-assess in the AM
[2018-10-02] MEDS: ALPRAZolam 0.25 MG TAB PO PRN (17:19)
[2018-10-02] MEDS: methylPREDNISolone Sod Succ 40 MG VIAL IVP SCH ×2 (17:21→23:34)
[2018-10-02] MEDS ORDERED: methylPREDNISolone Sod Succ 40 MG VIAL IVP SCH (18:00)
[2018-10-02] MEDS: Temazepam 15 MG CAP PO PRN (20:55)
[2018-10-02] MEDS: Atorvastatin Calcium 40 MG TAB PO SCH (20:56)
[2018-10-02] MEDS: Tamsulosin HCl 0.4 MG CAP PO SCH (20:56)
[2018-10-02] MEDS: Melatonin 3 MG TAB PO SCH (20:56)
[2018-10-03] MEDS: ALPRAZolam 0.25 MG TAB PO PRN ×2 (01:21→21:38)
[2018-10-03 03:42] LABS: Vancomycin, Trough 10.1 ug/mL
[2018-10-03] MEDS: Vancomycin HCl 1 GM in Premix Bag 1 BAG IVPB SCH ×2 (04:45→16:30)
[2018-10-03] MEDS: Cefepime 2 GM in Sodium Chloride 0.9% 100 ML IVPB SCH (05:40)
[2018-10-03] MEDS: Levothyroxine Sodium 100 MCG TAB PO SCH (05:42)
[2018-10-03] MEDS: methylPREDNISolone Sod Succ 40 MG VIAL IVP SCH ×3 (05:43→18:37)
[2018-10-03] MEDS: PROVENTIL INHALER 6.7 G (200 INHALATIONS) INH SCH ×2 (06:33→18:48)
[2018-10-03] MEDS: Apixaban 5 MG TAB PO SCH ×2 (08:40→21:38)
[2018-10-03] MEDS: Losartan 25 MG TAB PO SCH (08:41)
[2018-10-03] MEDS: Famotidine 20 MG TAB PO SCH ×2 (08:41→21:39)
[2018-10-03] MEDS: Furosemide 20 MG TAB PO SCH (08:41)
[2018-10-03] MEDS: Cyanocobalamin (Vitamin B-12) 1,000 MCG TAB PO SCH (08:41)
[2018-10-03] MEDS: Potassium Chloride 10 MEQ TAB PO SCH (08:41)
[2018-10-03] MEDS: Sodium Chloride 0.9% 1,000 ML IV SCH (10:03)
--- NOTE | 2018-10-03 11:20 | PDOC.PN ---
- Subjective Encounter Start Date: 10/03/18 Encounter Start Time: 11:18 Mr. Lam was seen today in follow-up of Pneumonia. He says he does not feel any better than he did on admission. He says he aches all over. He is still short of breath. - Objective Resuscitation Status - Order Detail: 10/01/18 17:29 Resuscitation Status Routine Resuscitation Status: FULL: Full Resuscitation MAR Reviewed: Yes Vital Signs & Weight: Vital Signs (12 hours) Temp Pulse Resp BP Pulse Ox 10/03/18 08:36 97.6 F 86 19 158/70 H 93 L 10/03/18 06:33 93 16 92 L 10/03/18 03:20 97.5 F L 83 22 H 168/70 H 93 L Weight Admit Weight 148 lb 12.8 oz Weight 152 lb 6.009 oz I&O: 10/02/18 10/03/18 10/04/18 06:59 06:59 06:59 Intake Total 1640 2775 Output Total 1000 1020 Balance 640 1755 Result Diagrams: 10/02/18 06:18 10/02/18 06:18 Phys Exam - Physical Examination HEENT: PERRLA + rales in both bases R>L, + expiratory wheezing Cardiovascular: RRR, no significant murmur, no rub Gastrointestinal: soft, non-tender, no distention, positive bowel sounds Musculoskeletal: pulses present, edema present trace pedal edema Neurological: non-focal Psychiatric: A&O x 3 Deviation from normal: flat affect Dx/Plan (1) Healthcare-associated pneumonia Code(s): J18.9 - PNEUMONIA, UNSPECIFIED ORGANISM Status: Acute (2) Acute respiratory failure with hypoxia Code(s): J96.01 - ACUTE RESPIRATORY FAILURE WITH HYPOXIA Status: Acute (3) COPD (chronic obstructive pulmonary disease) Status: Chronic Comment: no exacerbation (4) HTN (hypertension) Code(s): I10 - ESSENTIAL (PRIMARY) HYPERTENSION Status: Acute (5) Atrial fibrillation Code(s): I48.91 - UNSPECIFIED ATRIAL FIBRILLATION Status: Chronic Comment: rate controlled, no anticoagulation, high risk for Stroke, pt aware of it. (6) Depression Code(s): F32.9 - MAJOR DEPRESSIVE DISORDER, SINGLE EPISODE, UNSPECIFIED Status : Acute (7) Chronic anticoagulation Code(s): Z79.01 - CLEARING INSPECTOR (CURRENT) USE OF ANTICOAGULANTS Status: Chronic (8) Hypothyroidism Code(s): E03.9 - HYPOTHYROIDISM, UNSPECIFIED Status: Chronic - Plan * Pneumonia- healthcare associated- continue Vancomycin and Zosyn * Encourage mobility * HTN- blood pressure is a bit elevated- will monitor * AFIB- his heart rate is controlled * Hypothyroidism- stable- will check TSH * Depression- complicated by chronic illness- will increase his dose of Zoloft, and check a TSH. * Chronic anticoagulation for AFIB- on Eliquis
--- NOTE | 2018-10-03 13:49 | PRG ---
DATE OF SERVICE: 10/03/2018 SUBJECTIVE: Mr. Lam is extremely depressed. He states that he does not feel like he is going to live. OBJECTIVE: VITAL SIGNS: On exam, his temperature is 97.6, pulse 86, respirations 19, O2 saturation 93% on 3.5 L, and blood pressure 158/70. HEENT: Unremarkable. NECK: No JVD. LUNGS: Fairly clear anteriorly. CARDIAC: S1 and S2, regular. ABDOMEN: Soft. EXTREMITIES: No edema. LABORATORY DATA: White blood cell count 18.8, hematocrit 35.8, and platelet count 354. Sodium 131, potassium 4.8, chloride 96, CO2 of 30, BUN 19, creatinine 0.7, and glucose 181. His micro shows no growth to date. ASSESSMENT: 1. Possible right-sided pneumonia. 2. Extremely depressed. 3. Chronic anticoagulated. PLAN: His antidepressants have been increased. He remains on prednisone and antibiotics. He looks okay otherwise, so I think we just need to give him a few days and see if he improves. I do not know if most of this is medical illness or psychiatric in nature. Job ID: [id number]
[2018-10-03] MEDS ORDERED: guaiFENesin ER 600 MG TAB PO SCH (16:30)
[2018-10-03] MEDS: Metamucil PACK PO SCH (16:31)
[2018-10-03 17:21] LABS: Hemoglobin 10.9 g/dL (14.0-18.0); Mean Corpuscular HGB CONC 30.7 g/dL (32.0-36.0); Mean Corpuscular Hemoglobin 28.5 pg (27.0-31.0); Mean Corpuscular Volume 93.1 fL (78.0-98.0); Mean Platelet Volume 7.1 fL (7.4-10.4); Platelet Count 401 thou/uL (130-400); RBC Distribution Width 12.8 % (11.5-14.5); Red Blood Cell (RBC) Count 3.81 mill/uL (4.70-6.10); White Blood Cell (WBC) Count 22.2 thou/uL (4.8-10.8)
[2018-10-03 17:30] LABS: Hemoglobin A1c 6.7 % (4.0-6.0)
[2018-10-03 17:40] LABS: Lactic Acid 1.7 mmol/L (0.5-2.2)
[2018-10-03 17:43] LABS: Anion Gap 12 mmol/L (10-20); BUN (Urea Nitrogen) 24 mg/dL (8.4-25.7); Calc. Creatinine Clearance 82 mL/min (70-130); Calcium 9.5 mg/dL (7.8-10.44); Carbon Dioxide 30 mmol/L (23-31); Chloride 94 mmol/L (98-107); Estimated GFR-MDRD Greater than 90; Glucose 211 mg/dL (83-110); Potassium 5.4 mmol/L (3.5-5.1); Sodium 131 mmol/L (136-145)
[2018-10-03 17:45] LABS: Band 14 % (5-11); Hypochromia SLIGHT = 6-15 cells (100X) (0-5/hpf); Lymphocytes 1 % (21-51); MDiff Complete? YES; Monocytes 5 % (0-10); Neutrophil 80 % (42-75); Platelet Morphology Comment Appears Increased; Polychromasia SLIGHT = 2-3 cells (100X) (0-2/hpf)
--- NOTE | 2018-10-03 18:17 | RAD ---
AP CHEST: History: Pneumonia follow up. Comparison: 10-01-18 FINDINGS: There is confluent infiltrate throughout the right lung, more confluent in the right upper lung and r ight lower lung. There is also confluent infiltrate in the left lung base. There are bilateral effusi ons. There is cardiomegaly and mild vascular congestion. Pacemaker leads are unchanged. IMPRESSION: Worsening infiltrates when compared to prior study. POS: AGW
[2018-10-03] MEDS ORDERED: HumaLOG 300 UNITS/3 ML VIAL SC PRN ×2 (18:25)
[2018-10-03] MEDS ORDERED: Dextrose 50% Abboject 50 ML SYRINGE SLOW IVP PRN (18:25)
[2018-10-03] MEDS ORDERED: Dextrose 5% in Water 1,000 ML IV PRN (18:25)
[2018-10-03] MEDS ORDERED: Furosemide 40 MG/4 ML VIAL SLOW IVP SCH (18:30)
[2018-10-03] MEDS: Piperacillin/Tazobactam 3.375 GM in Sodium Chloride 0.9% 100 ML IVPB SCH (18:38)
[2018-10-03] MEDS: Melatonin 3 MG TAB PO SCH (21:38)
[2018-10-03] MEDS: Tamsulosin HCl 0.4 MG CAP PO SCH (21:39)
[2018-10-03] MEDS: Atorvastatin Calcium 40 MG TAB PO SCH (21:39)
[2018-10-03] MEDS: guaiFENesin ER 600 MG TAB PO SCH (21:39)
[2018-10-04] MEDS: Piperacillin/Tazobactam 3.375 GM in Sodium Chloride 0.9% 100 ML IVPB SCH ×6 (01:32→23:19)
[2018-10-04] MEDS: methylPREDNISolone Sod Succ 40 MG VIAL IVP SCH ×2 (01:32→06:06)
[2018-10-04] MEDS: Vancomycin HCl 1 GM in Premix Bag 1 BAG IVPB SCH (03:55)
[2018-10-04] MEDS: Levothyroxine Sodium 100 MCG TAB PO SCH (06:06)
[2018-10-04] MEDS: PROVENTIL INHALER 6.7 G (200 INHALATIONS) INH SCH ×2 (06:42→18:45)
--- NOTE | 2018-10-04 08:29 | PRG ---
DATE OF SERVICE: 10/04/2018 SUBJECTIVE: Mr. Lam continues to be very despondent and depressed. He will give one-word answers. Does not really want to communicate at all. OBJECTIVE: VITAL SIGNS: On exam, his temperature is 96.0, pulse 71, respirations 20, O2 saturation 97% on 4 L, and blood pressure 152/69. GENERAL: He has a generalized disheveled appearance. HEENT: Unremarkable. NECK: No JVD. LUNGS: He has inspiratory crackles in the bases. CARDIAC: S1 and S2. Regular. ABDOMEN: Soft. EXTREMITIES: No edema. LABORATORY DATA: I do not see any labs that were done today. Labs from yesterday afternoon shows sodium of 131, potassium 5.4, chloride 94, CO2 of 30, BUN 24, creatinine 0.7, and glucose 211. ASSESSMENT: 1. Question of sepsis syndrome. 2. Some component of major depression. 3. Hyperkalemia yesterday. RECOMMENDATIONS: 1. Since his cultures are sterile, I will go ahead and stop the vancomycin since we are seeing some renal insufficiency. 2. I will go ahead and stop the steroids since they do not seem to be helping. 3. Following with you. Job ID: [id number]
[2018-10-04 08:58] LABS: #Lymphocytes 0.3 thou/uL (1.20-3.40); #Monocytes 0.9 thou/uL (0.11-0.59); #Neutrophils 22.7 thou/uL (1.40-6.50); %Eosinophils 0.1 % (0.0-10.0); %Lymphocytes 1.3 % (21.0-51.0); %Monocytes 3.7 % (0.0-10.0); Hemoglobin 10.4 g/dL (14.0-18.0); Mean Corpuscular HGB CONC 30.1 g/dL (32.0-36.0); Mean Corpuscular Hemoglobin 28.2 pg (27.0-31.0); Mean Corpuscular Volume 93.7 fL (78.0-98.0); Mean Platelet Volume 7.1 fL (7.4-10.4); Platelet Count 434 thou/uL (130-400); RBC Distribution Width 12.6 % (11.5-14.5); Red Blood Cell (RBC) Count 3.68 mill/uL (4.70-6.10); White Blood Cell (WBC) Count 23.9 thou/uL (4.8-10.8)
[2018-10-04] MEDS: Ferrous Sulfate 325 MG TAB PO SCH (08:58)
[2018-10-04] MEDS: Losartan 25 MG TAB PO SCH (08:58)
[2018-10-04] MEDS: Furosemide 20 MG TAB PO SCH (08:58)
[2018-10-04] MEDS: Famotidine 20 MG TAB PO SCH ×2 (08:58→20:07)
[2018-10-04] MEDS: Potassium Chloride 10 MEQ TAB PO SCH (08:58)
[2018-10-04] MEDS: guaiFENesin ER 600 MG TAB PO SCH ×2 (08:58→20:07)
[2018-10-04] MEDS: Cyanocobalamin (Vitamin B-12) 1,000 MCG TAB PO SCH (08:58)
[2018-10-04] MEDS: Apixaban 5 MG TAB PO SCH ×2 (08:58→20:06)
--- NOTE | 2018-10-04 09:12 | PQF ---
CLINICAL DOCUMENTATION IMPROVEMENT CLARIFICATION FORM: ICD-10 Updated PLEASE DO AN ADDENDUM TO THE PROGRESS NOTE WITH ANY DOCUMENTATION UPDATES OR ADDITIONS AND CARRY THROUGH TO DC SUMMARY. THANK YOU. DATE: 10/04/18 ATTN : DR. LAND Please exercise your independent, professional judgment in responding to the clarification form. Clinical indicators are provided on the bottom of this form for your review Please check appropriate box(s) to clarify if the following diagnosis has been ruled in or ruled out: "SEPSIS" [X ] Ruled in diagnosis [ ] Continue to treat [ ] Resolved [ ] Ruled out diagnosis [ ] Cannot rule out diagnosis [ ] Other diagnosis [ ] Unable to determine In addition, please specify: Present on Admission (POA): [ X ] Yes [ ] No [ ] Unable to determine For continuity of documentation, please document condition throughout progress notes and discharge summary. Thank You. CLINICAL INDICATORS - SIGNS / SYMPTOMS / LABS ER NOTE: "APPEARS TO HAVE SEPSIS WITH PNEUMONIA" PULMONARY NOTE 10/04: "QUESTION OF SEPSIS SYNDROME" WBC 23.9 BANDS 14 LACTIC ACID 2.5 RISKS: PNEUMONIA TREATMENT: IV LEVAQUIN (ER) IV VANCOMYCIN (ER-PRESENT) IV ZOSYN (ER-PRESENT) IV FLUIDS (ER) BLOOD CULTURES TELEMETRY MONITORING SAP Manager Client [employer] Winform Viewer(This form is maintained as a part of the permanent medical record) 2014 [employer]. All Rights Reserved GRISEL [email or web address] Office: [phone] [facility]
[2018-10-04 09:15] LABS: Anion Gap 11 mmol/L (10-20); BUN (Urea Nitrogen) 29 mg/dL (8.4-25.7); Calc. Creatinine Clearance 74 mL/min (70-130); Calcium 9.5 mg/dL (7.8-10.44); Carbon Dioxide 31 mmol/L (23-31); Chloride 93 mmol/L (98-107); Estimated GFR-MDRD Greater than 90; Glucose 235 mg/dL (83-110); Potassium 5.1 mmol/L (3.5-5.1); Sodium 130 mmol/L (136-145)
[2018-10-04] MEDS: Micafungin 100 MG in Sodium Chloride 0.9% 100 ML IVPB SCH (09:35)
--- NOTE | 2018-10-04 10:13 | PDOC.PN ---
- Subjective Encounter Start Date: 10/04/18 Encounter Start Time: 10:12 Mr. Lam was seen today in follow-up of pneumonia. He says he is not feeling any better. He appears depressed, and says he has " no energy". He denies any significant dyspnea. He is laying flat in bed and does not appear in respiratory distress. - Objective Resuscitation Status - Order Detail: 10/03/18 22:30 Resuscitation Status Routine Co-Sign Provider: Resuscitation Status: DNAR: NO Resuscitation Discussed with: Patient MAR Reviewed: Yes Vital Signs & Weight: Vital Signs (12 hours) Temp Pulse Resp BP BP Pulse Ox 10/04/18 08:00 96.0 F L 80 14 123/65 96 10/04/18 06:43 97 10/04/18 06:42 71 20 97 10/04/18 06:37 71 20 97 10/04/18 04:00 96 F L 75 20 152/69 H 93 L 10/03/18 23:25 78 164/73 H Weight Admit Weight 148 lb 12.8 oz Weight 152 lb 4 oz I&O: 10/03/18 10/04/18 10/05/18 06:59 06:59 06:59 Intake Total 2775 1095 Output Total 1020 600 Balance 1755 495 Result Diagrams: 10/04/18 08:35 10/04/18 08:35 Additional Labs: Accuchecks 10/04/18 10/03/18 05:02 20:19 POC Glucose 228 H 215 H Phys Exam - Physical Examination HEENT: PERRLA Respiratory: no rhonchi, wheezing present + rales bilaterally, and positive for bilateral wheeze Cardiovascular: RRR, no significant murmur, no rub Gastrointestinal: soft, non-tender, no distention, positive bowel sounds Musculoskeletal: no edema, pulses present Dx/Plan (1) Healthcare-associated pneumonia Code(s): J18.9 - PNEUMONIA, UNSPECIFIED ORGANISM Status: Acute (2) Acute respiratory failure with hypoxia Code(s): J96.01 - ACUTE RESPIRATORY FAILURE WITH HYPOXIA Status: Acute (3) COPD (chronic obstructive pulmonary disease) Status: Chronic Comment: no exacerbation (4) HTN (hypertension) Code(s): I10 - ESSENTIAL (PRIMARY) HYPERTENSION Status: Acute (5) Atrial fibrillation Code(s): I48.91 - UNSPECIFIED ATRIAL FIBRILLATION Status: Chronic Comment: rate controlled, no anticoagulation, high risk for Stroke, pt aware of it. (6) Depression Code(s): F32.9 - MAJOR DEPRESSIVE DISORDER, SINGLE EPISODE, UNSPECIFIED Status : Acute (7) Chronic anticoagulation Code(s): Z79.01 - FDC (CURRENT) USE OF ANTICOAGULANTS Status: Chronic (8) Hypothyroidism Code(s): E03.9 - HYPOTHYROIDISM, UNSPECIFIED Status: Chronic - Plan * Pneumonia ( HAP)- will continue Vancomycin and Zosyn * Respiratory failure- suspect he is a bit volume overloaded, will continue LAsix, and IV fluids were discontinued yesterday * HTN- blood pressure is stable * Hypothyroidism- his TSH was normal * AFIB- his heart rate is stable- he is on Eliquis for stroke prevention. * Depression- Zoloft dose was increased, but this may take several weeks to see an effect- encouraged patient to sit in a chair daily, and improve sunlight in the room- increase his mobilization * Leukocytosis- suspect may be due to steroids- Micafungin has been added by Dr. Dye . will continue to monitor
[2018-10-04 13:48] VITALS: BP 145/64
[2018-10-04] MEDS: Metamucil PACK PO SCH (15:34)
[2018-10-04] MEDS: ALPRAZolam 0.25 MG TAB PO PRN (15:34)
[2018-10-04] MEDS ORDERED: Vancomycin HCl 1.25 GM in Sodium Chloride 0.9% 250 ML 250 ML IVPB SCH (16:00)
[2018-10-04 18:08] LABS: Actual Bicarbonate (HCO3a) 32.6 mEq/L (22-28); Base Excess (BEa) 3.9 mEq/L (-2.0 to +3.0); CO2 Tension 72.2 mmHg (35.0-45.0); Calcium, Ionized 1.27 mmol/L (1.12-1.30); Carboxyhemoglobin (COHb) 1.1 gm% (0.0-3.0); Hemoglobin (Hb) 11.8 g/dL (14.0-18.0); O2 Tension (PaO2) 72.9 mmHg (> 70.0); Potassium - ABG Lab 5.04 mmol/L (3.70-5.30); pH, Arterial 7.27 (7.35-7.45)
[2018-10-04 18:09] LABS: Puncture Site RBR
[2018-10-04] MEDS: Melatonin 3 MG TAB PO SCH (20:06)
[2018-10-04] MEDS: Tamsulosin HCl 0.4 MG CAP PO SCH (20:07)
[2018-10-04] MEDS: Atorvastatin Calcium 40 MG TAB PO SCH (20:07)
[2018-10-04 22:29] LABS: Calc. Creatinine Clearance 78 mL/min (70-130); Estimated GFR-MDRD Greater than 90
[2018-10-05] MEDS: Piperacillin/Tazobactam 3.375 GM in Sodium Chloride 0.9% 100 ML IVPB SCH ×2 (05:48→12:04)
[2018-10-05] MEDS: Levothyroxine Sodium 100 MCG TAB PO SCH (05:55)
[2018-10-05] MEDS ORDERED: Morphine 4 MG/ML VIAL SLOW IVP PRN ×2 (06:03→09:20)
[2018-10-05] MEDS: PROVENTIL INHALER 6.7 G (200 INHALATIONS) INH SCH (06:46)
[2018-10-05 07:14] VITALS: TEMP 96.6
[2018-10-05 07:39] LABS: Anion Gap 13 mmol/L (10-20); BUN (Urea Nitrogen) 32 mg/dL (8.4-25.7); Calc. Creatinine Clearance 78 mL/min (70-130); Calcium 9.4 mg/dL (7.8-10.44); Carbon Dioxide 32 mmol/L (23-31); Chloride 94 mmol/L (98-107); Estimated GFR-MDRD Greater than 90; Glucose 147 mg/dL (83-110); Potassium 5.5 mmol/L (3.5-5.1); Sodium 133 mmol/L (136-145)
[2018-10-05 07:56] LABS: Band 2 % (5-11); Hemoglobin 11.7 g/dL (14.0-18.0); Lymphocytes 3 % (21-51); MDiff Complete? YES; Mean Corpuscular HGB CONC 32.1 g/dL (32.0-36.0); Mean Corpuscular Hemoglobin 29.2 pg (27.0-31.0); Mean Corpuscular Volume 91.1 fL (78.0-98.0); Mean Platelet Volume 8.6 fL (7.4-10.4); Monocytes 5 % (0-10); Neutrophil 90 % (42-75); Platelet Count 387 thou/uL (130-400); Platelet Morphology Comment Appears Adequate; RBC Distribution Width 13.1 % (11.5-14.5); Red Blood Cell (RBC) Count 4.01 mill/uL (4.70-6.10)
--- NOTE | 2018-10-05 08:24 | PRG ---
DATE OF SERVICE: 10/05/2018 SUBJECTIVE: Mr. Lam has essentially given up on all hopes of getting better. He wants to be transitioned to palliative care. OBJECTIVE: VITAL SIGNS: Temperature 96.6, pulse 80, blood pressure 159/64. Intake for 24 hours 1095, output 600. HEENT: Unremarkable. NECK: No adenopathy. LUNGS: Diminished throughout. Crackles on the right. CARDIAC: S1, S2. Regular. ABDOMEN: Soft. EXTREMITIES: Edematous. LABORATORY DATA: Sodium 133, potassium 5.5, chloride 94, CO2 of 32, BUN 32, creatinine 0.7, glucose 145. ASSESSMENT: 1. Right-sided pneumonia. 2. Status post thoracoscopy. 3. Radiation damage likely to heart and lungs. 4. Hyperkalemia. PLAN: 1. I will go ahead and hold his losartan since he is hyperkalemic. I will put him on amlodipine instead for his blood pressure. 2. Continue with antibiotics and antifungals. 3. I still think he has a chance of getting better; however, if he will not allow medical therapy, this is more or less becoming a hopeless situation. I have attempted to call his , she is not answering either number this morning. I will stop by later to see if she is in the room. Job ID: [id number]
[2018-10-05] MEDS ORDERED: Amlodipine 10 MG TAB PO SCH (09:00)
[2018-10-05] MEDS ORDERED: Lorazepam 2 MG/ML VIAL SLOW IVP PRN (09:19)
[2018-10-05] MEDS: Apixaban 5 MG TAB PO SCH (09:20)
[2018-10-05] MEDS: Cyanocobalamin (Vitamin B-12) 1,000 MCG TAB PO SCH (09:21)
[2018-10-05] MEDS: Famotidine 20 MG TAB PO SCH (09:22)
[2018-10-05] MEDS: Furosemide 20 MG TAB PO SCH (09:22)
--- NOTE | 2018-10-05 09:22 | PDOC.PN ---
- Subjective Encounter Start Date: 10/05/18 Encounter Start Time: 09:20 Mr. Lam was seen today in follow-up of respiratory failure. He will open his eyes but he does not respond. He is having agonal breathing. - Objective Resuscitation Status - Order Detail: 10/03/18 22:30 Resuscitation Status Routine Co-Sign Provider: Resuscitation Status: DNAR: NO Resuscitation Discussed with: Patient MAR Reviewed: Yes Vital Signs & Weight: Vital Signs (12 hours) Temp Pulse Resp Pulse Ox 10/05/18 08:00 98 10/05/18 07:14 96.6 F L 10/05/18 06:40 85 20 96 10/05/18 03:32 97.4 F L 10/04/18 23:17 97.6 F Weight Admit Weight 148 lb 12.8 oz Weight 151 lb 14.4 oz Most Recent Monitor Data Heart Rate from ECG 79 NIBP 158/72 NIBP BP-Mean 100 Respiration from ECG 15 SpO2 98 I&O: 10/04/18 10/05/18 10/06/18 06:59 06:59 06:59 Intake Total 1095 560 Output Total 600 150 Balance 495 410 Result Diagrams: 10/05/18 07:13 10/05/18 07:13 Additional Labs: Accuchecks 10/05/18 10/04/18 10/04/18 05:37 19:59 16:40 POC Glucose 136 H 159 H 158 H 10/04/18 10:44 POC Glucose 212 H Phys Exam - Physical Examination HEENT: PERRLA + rhonchi rales Cardiovascular: RRR, no significant murmur, no rub Gastrointestinal: soft, non-tender, no distention, positive bowel sounds Musculoskeletal: pulses present, edema present Dx/Plan (1) Healthcare-associated pneumonia Code(s): J18.9 - PNEUMONIA, UNSPECIFIED ORGANISM Status: Acute (2) Acute respiratory failure with hypoxia Code(s): J96.01 - ACUTE RESPIRATORY FAILURE WITH HYPOXIA Status: Acute (3) COPD (chronic obstructive pulmonary disease) Status: Chronic Comment: no exacerbation (4) HTN (hypertension) Code(s): I10 - ESSENTIAL (PRIMARY) HYPERTENSION Status: Acute (5) Atrial fibrillation Code(s): I48.91 - UNSPECIFIED ATRIAL FIBRILLATION Status: Chronic Comment: rate controlled, no anticoagulation, high risk for Stroke, pt aware of it. 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 * HTN- blood pressure is stable- Losartan was discontinued due to hyperkalemia * Will increase the frequency of Morphine, and add Ativan
[2018-10-05] MEDS: guaiFENesin ER 600 MG TAB PO SCH (09:24)
[2018-10-05] MEDS: Potassium Chloride 10 MEQ TAB PO SCH (09:25)
[2018-10-05] MEDS: Micafungin 100 MG in Sodium Chloride 0.9% 100 ML IVPB SCH (09:25)
== END 2018-10-05 14:31 | disposition hospice, inpatient (51) | DRG 871 ==
LOC: ERS 13:50 → 2NO 16:45 → IMCU/EMU 10-04 13:40
PROVIDERS: ADMIT Family Medicine; ATTEND Family Medicine
DX: A41.9 Sepsis, unspecified organism (principal); J18.1 Lobar pneumonia, unspecified organism; J96.01 Acute respiratory failure with hypoxia; J96.02 Acute respiratory failure with hypercapnia; J90 Pleural effusion, not elsewhere classified; J44.1 Chronic obstructive pulmonary disease with (acute) exacerbation; J44.0 Chronic obstructive pulmonary disease with (acute) lower respiratory infection; Z66 Do not resuscitate; Z51.5 Encounter for palliative care; F32.9 Major depressive disorder, single episode, unspecified; F41.9 Anxiety disorder, unspecified; C32.0 Malignant neoplasm of glottis; I48.2 Chronic atrial fibrillation; K21.9 Gastro-esophageal reflux disease without esophagitis; D72.829 Elevated white blood cell count, unspecified; N40.0 Benign prostatic hyperplasia without lower urinary tract symptoms; E78.5 Hyperlipidemia, unspecified; I10 Essential (primary) hypertension; E03.9 Hypothyroidism, unspecified; E87.5 Hyperkalemia; Z79.899 Other long term (current) drug therapy; Y95 Nosocomial condition; Z79.01 Long term (current) use of anticoagulants; Z79.51 Long term (current) use of inhaled steroids; Z95.0 Presence of cardiac pacemaker; Z85.118 Personal history of other malignant neoplasm of bronchus and lung; Z92.3 Personal history of irradiation; T38.0X5A Adverse effect of glucocorticoids and synthetic analogues, initial encounter
CPT/HCPCS: 36415; 36416; 71045; 80048; 80053; 80202; 81003; 82550; 82553; 82565; 82805; 83036; 83605; 83690; 83880; 84443; 84484; 85007; 85025; 85027; 87040; 93005; 94644; 94660; 96365; 96368; J0692; J2060; J2248; J2270; J2405; J2543; J2920; J3370; J3490; J7050; J7611; J7620